=== PATIENT | male | born 1960 | race Caucasian/White ===

== ENCOUNTER 2020-04-20 18:36 | Emergency (ER) | payer BC ==
--- OUTSIDE RECORDS SUMMARY | 2020-04-20 18:38 | XMS REPORT | Clinical Summary ---
:1960 Author Organization [facility] Address [address] [place] [address] Care Team Providers Name Role Phone Pepper Donnelly MD Primary Care Provider Allergies No Known Active Allergies Medications Medication Sig Dispensed Refills Start Date End Date Status levothyroxine Take 50 mcg by 0 10/08/2015 Active (SYNTHROID, LEVOTHROID) mouth once 25 MCG tablet daily. atenolol (TENORMIN) 25 Take 25 mg by 0 Active MG tablet mouth daily. Active Problems Problem Noted Date Prostate cancer 12/01/2015 Cancer Staging: Pathologic stage from : T2c, N0 - Signed by Miguel Ángel Hankins MD on 01/09/2017 Surgical History Surgery Date Site/Laterality Comments WISDOM TOOTH EXTRACTION 07/07/1979 - 07/06/1980 KNEE ARTHROSCOPY W/ MENISCAL 07/07/2008 - Right REPAIR 07/06/2009 SINUS SURGERY 07/07/2014 - 07/06/2015 [place] 12/01/2015 N/A Procedure: ROBOT IC LAP,PROSTATECTOMY,RADICAL,W/ N/A ASS ISTED LAPAROSCOPIC NERVE SPARE,INCL ROBOTIC PROSTAT ECTOMY ; Surgeon: Miguel Ángel Hankins MD; Location: [facility] IN OR; Service: Urology Medical devices from this surgery are in t he Implants section . [place] LAP,PELVIC 12/01/2015 N/A Procedure: BILAT ERAL LYMPHADENECTOMY N/A PELVIC LYMPH NOD E DISSECTION ; Reza rgeon: Miguel Ángle Hankins MD; Location: [facility] IN OR; Service: Urology Medical devices from this surgery are in t he Implants section . PROSTATE SURGERY Medical History Medical History Date Comments Cancer (HCC) Elevated PSA Prostate cancer (HCC) Renal cancer (HCC) Urinary tract infection Seizures (HCC) 2013 had seizure 3 yrs ag o, none since GERD (gastroesophageal reflux disease) Prostate enlargement Hemochromatosis donates blood every 3 months; last donation September 2015 Disease of thyroid gland hypothroid Anesthesia NHAP/NFHAP Hypertension Hard of hearing Family History Medical History Relation Name Comments Hypertension Mother Relation Name Status Comments Father Alive Mother Alive Social History Tobacco Use Types Packs/Day Years Used Date Current Every Day Smoker 1 27 Smokeless Tobacco: Current User Alcohol Use Drinks/Week oz/Week Comments Yes 3-4 Cans of beer 3.0 - 4.0 Sex Assigned at Date Recorded Not on file Last Filed Vital Signs Not on file Plan of Treatment Health Maintenance Due Date Last Done Comments COLONOSCOPY SCREENING 2011 SHINGLES VACCINES (#1) 2011 INFLUENZA VACCINE 02/05/2020 Implants Implanted Type Area Plate Worker Helper Device Shelf Model / Identifier Expiration Serial / Date Lot Clip Ligtng Hem-O-Samia Endoscpc Aplr [facility] Lg - [id number] Surgical WECK CLOSURE [id number] / Implanted: Qty: 5 on 12/01/2015 by Miguel Ángel Hankins MD at [facility] Implants; SYSTEMS / Expanders; Extenders; Surgical Wires Amniofix Amniotic Membrane Allograft - [id number] - [id number] Urological Anterior: [employer] 08/27/2020 APS [id number] / Implanted: Qty: 1 on 12/01/2015 by Miguel Ángel Hankins MD at [facility] Implants or Abdomen, INC [id number] / Sets Middle [id number] Quadrant/No n Specific Results Not on fileafter 04/20/2019 Advance Directives For more information, please contact: [phone] Type Date Recorded Patient [place] Planning Manager Explanati on Advance Directives, Living Will and Medical Power of Plastic Welder Code Status Date Activated Date Inactivated Comments Full Code 12/01/2015 12:05 PM 12/04/2015 5:30 PM Code Status decision reached by: Patient
[2020-04-20] MEDS ORDERED: NA CHLORIDE 0.9% 1,000 ML ONE (19:16)
[2020-04-20] MEDS ORDERED: ONDANSETRON 4 MG/2 ML VIAL ONE (19:17)
[2020-04-20 19:18] LABS: Basophils % 0.8 % (0-1.3); Hematocrit 49.5 % (39.6-49.0); Lymphocytes % 15.9 % (15.3-44.8); MPV 9.2 fL (7.6-11.3)
[2020-04-20 19:28] LABS: Albumin 3.3 g/dL (3.4-5.0); Bilirubin Direct 0.3 mg/dL (0-0.2); Bilirubin Total 1.1 mg/dL (0.2-1.0); Potassium 3.7 mmol/L (3.5-5.1); Protein, Total 8.6 g/dL (6.4-8.2)
[2020-04-20] MEDS ORDERED: KETOROLAC 30 MG/ML INJ ONE (20:10)
[2020-04-20] MEDS ORDERED: CYCLOBENZAPRINE 10 MG TAB ONE (20:10)
--- NOTE | 2020-04-20 20:10 | RAD REPORT ---
EXAM DESCRIPTION: CT - Abdomen Pelvis W Contrast - 04/20/2020 7:43 pm CLINICAL HISTORY: abdominal pain, vomiting COMPARISON: No comparisons TECHNIQUE: Biphasic, helical CT imaging of the abdomen and pelvis was performed following 100 ml non -ionic IV contrast. No oral contrast. All CT scans are performed using dose optimization technique as appropriate and may include automated exposure control or mA/KV adjustment according to patient size. FINDINGS: No suspicious findings in the lung bases. Liver shows diffuse fatty infiltration. There are multiple variably sized homogeneous fluid density t hin wall masses. These all have simple cyst characteristics. Spleen and pancreas show no suspicious f indings. Multiple gallstones are identified. No wall edema or pericholecystic fluid. No biliary tree dilatation. Symmetric renal function is seen with no hydronephrosis or suspicious renal mass. No pyelonephritis o r acute parenchymal process. Urinary bladder is fully contracted limiting detail. No bladder stone. N o adrenal abnormalities. No dilated bowel loops or bowel wall thickening. Retrocecal appendix is normal. No active bowel proce ss identifiable. No free air, free fluid or inflammatory stranding. No hernia, mass or bulky lymphad enopathy. No suspicious bony findings. Aortic atherosclerotic calcifications are present. Mural thrombus is seen along the right side of the infrarenal aorta. No significant luminal narrowing. IMPRESSION: Contrast enhanced CT abdomen and pelvis showing no acute or emergent finding. Cholelithiasis present. Acute cholecystitis not suspected. Correlation is needed with clinical presen tation. Bile ducts are normal size. Patient has diffuse fatty infiltration of the liver with multiple liver cysts present.
--- NOTE | 2020-04-20 20:51 | RAD REPORT ---
EXAM DESCRIPTION: US - Abdomen Exam Limited - 04/20/2020 8:40 pm CLINICAL HISTORY: vomiting, abdominal pain COMPARISON: Abdomen Pelvis W Contrast dated 04/20/2020 FINDINGS: Multiple gallstones are present matching the CT finding. No wall thickening or pericholecy stic fluid seen. No common duct stone or biliary tree dilatation identified. IMPRESSION: Multi stone cholelithiasis without ultrasound findings of acute cholecystitis. No biliary tree abnormality.
--- NOTE | 2020-04-20 21:17 | ER ---
Nurse's Notes [facility] Name: Kyrie Quispe Age: 59 yrs Sex: Male : 1960 Arrival Date: 04/20/2020 Time: 18:37 Bed 15 Private MD: Diagnosis: Cholelithiasis Presentation: 04/20 18:49 Chief complaint: N/V x 2 months. Coronavirus screen: At this time, the client does not hb indicate any symptoms associated with coronavirus-19. Ebola Screen: No symptoms or risks identified at this time. Initial Sepsis Screen: Does the patient meet any 2 criteria? HR > 90 bpm. No. Patient's initial sepsis screen is negative. Does the patient have a suspected source of infection? No. Patient's initial sepsis screen is negative. Risk Assessment: Do you want to hurt yourself or someone else? Patient reports no desire to harm self or others. Onset of symptoms was February 2020. 18:49 Method Of Arrival: Ambulatory hb 18:49 Acuity: RONNIE 3 hb Historical: - Allergies: 18:54 No Known Allergies; hb - Home Meds: 18:54 Xifaxan oral oral [Active]; Levaquin Oral [Active]; Atenolol Oral [Active]; hb levothyroxine oral [Active]; Protonix Oral [Active]; Folic Acid Oral [Active]; kdkmzix-hvlpokybh-fboj oral oral [Active]; - PMHx: 18:54 hemochromatosis; Heart Murmur; Seizures; Prostate CA; hb - PSHx: 18:54 Prostate; Knee - Right; Sinus; hb - Immunization history:: Adult Immunizations up to date. - Social history:: Smoking status: Patient reports the use of cigarette tobacco products, smokes one-half pack cigarettes per day. Screenin:54 Abuse screen: Denies threats or abuse. Denies injuries from another. Nutritional hb screening: No deficits noted. Tuberculosis screening: No symptoms or risk factors identified. Fall Risk None identified. Assessment: 19:12 General: Appears in no apparent distress. Behavior is calm, cooperative, appropriate wh for age. Pain: Denies pain. Neuro: Level of Consciousness is awake, alert, obeys commands, Oriented to person, place, time, situation, Appropriate for age. Cardiovascular: Capillary refill < 3 seconds. Respiratory: Airway is patent Respiratory effort is even, unlabored, Respiratory pattern is regular, symmetrical. GI: Abdomen is flat, non-distended, Abd is soft and non tender Reports nausea, vomiting. : No signs and/or symptoms were reported regarding the genitourinary system. EENT: No signs and/or symptoms were reported regarding the EENT system. Derm: Skin is intact, is healthy with good turgor, Skin is pink, warm \T\ dry. normal. Musculoskeletal: Circulation, motion, and sensation intact. 20:10 Reassessment: Patient appears in no apparent distress at this time. No changes from previously documented assessment. Patient and/or family updated on plan of care and expected duration. Pain level reassessed. Patient is alert, oriented x 3, equal unlabored respirations, skin warm/dry/pink. 21:30 Reassessment: Patient appears in no apparent distress at this time. Patient and/or family updated on plan of care and expected duration. Pain level reassessed. Patient is alert, oriented x 3, equal unlabored respirations, skin warm/dry/pink. Vital Signs: 18:49 BP 121 / 97; Pulse 111; Resp 16; Temp 98.4(O); Pulse Ox 100% on R/A; Weight 79.38 kg; hb Height 6 ft. 3 in. (190.50 cm); Pain 0/10; 19:12 BP 104 / 81; Pulse 105; Resp 18; Pulse Ox 97% on R/A; wh 21:49 BP 121 / 87; Pulse 89; Resp 17; Pulse Ox 98% on R/A; Pain 0/10; tl1 18:49 Body Mass Index 21.87 (79.38 kg, 190.50 cm) ED Course: 18:37 Patient arrived in ED. ds1 18:40 Foster Carpio PA is PHCP. [facility] 18:40 Roney Thomas MD is Attending Physician. [facility] 18:51 Triage completed. hb 18:54 Arm band placed on. hb 18:54 Patient has correct armband on for positive identification. Bed in low position. Call light in reach. Side rails up X 1. 19:00 Initial lab(s) drawn, by me, sent to lab. Inserted saline lock: 20 gauge in right jp3 forearm, using aseptic technique. Blood collected. 19:00 Patient maintains SpO2 saturation greater than 95% on room air. jp3 19:03 Alyson Crawley is Primary Nurse. 19:05 Verbal reassurance given. Pulse ox on. NIBP on. jp3 19:42 CT Abd/Pelvis - IV Contrast Only In Process Unspecified. EDMS 20:42 US Abdomen Limited In Process Unspecified. EDMS 21:16 Davion Shaw MD is Referral Physician. [facility] 21:50 No provider procedures requiring assistance completed. IV discontinued, intact, tl1 bleeding controlled. Administered Medications: 19:09 Drug: NS 0.9% 1000 ml Route: IV; Rate: 1 bolus; Site: right forearm; 21:50 Follow up: IV Status: Completed infusion; IV Intake: 1000ml tl1 19:11 Drug: Zofran (Ondansetron) 4 mg Route: IVP; Site: right forearm; 21:50 Follow up: Response: No adverse reaction; Marked relief of symptoms tl1 Intake: 21:50 IV: 1000ml; Total: 1000ml. tl1 Outcome: 21:16 Discharge ordered by MD. [facility] 21:49 Discharged to home with family. tl1 21:49 Condition: good 21:49 Discharge instructions given to patient, family, Instructed on discharge instructions, follow up and referral plans. medication usage, Demonstrated understanding of instructions, follow-up care, medications, Prescriptions given X 1. 21:50 Patient left the ED. tl1 Signatures: Dispatcher [employer] EDMS Foster Carpio PA PA [facility] Swapna Gentile ds1 Yanet Fenton RN RN tl1 Pily Palma RN RN Alyson Crawley Amari Lerma jp3
--- NOTE | 2020-04-20 21:18 | EDPHYS ---
Physician Documentation [facility] Name: Kyrie Quispe Age: 59 yrs Sex: Male : 1960 Arrival Date: 04/20/2020 Time: 18:37 Bed 15 Private MD: ED Physician Roney Thomas HPI: 04/20 18:42 This 59 yrs old Male presents to ER via Ambulatory with complaints of Unable jmm to Keep Food Down. 18:42 The patient presents to the emergency department with vomiting. Onset: The jmm symptoms/episode began/occurred gradually, 2 month(s) ago. Possible causes: unknown. The symptoms are aggravated by food . Associated signs and symptoms: Pertinent positives: dysuria, Pertinent negatives: diarrhea. This is a 59 year old male with a history of hemochromatosis, seizures, prostate cancer that presents to the ED with complaints of ongoing vomiting for the past 2 months. Patient is currently under the care of Dr. Ling. Advised to go to the ER by her PCP. . Historical: - Allergies: 18:54 No Known Allergies; hb - Home Meds: 18:54 Xifaxan oral oral [Active]; Levaquin Oral [Active]; Atenolol Oral [Active]; hb levothyroxine oral [Active]; Protonix Oral [Active]; Folic Acid Oral [Active]; aqobeoz-hgzkwynww-kvst oral oral [Active]; - PMHx: 18:54 hemochromatosis; Heart Murmur; Seizures; Prostate CA; hb - PSHx: 18:54 Prostate; Knee - Right; Sinus; hb - Immunization history:: Adult Immunizations up to date. - Social history:: Smoking status: Patient reports the use of cigarette tobacco products, smokes one-half pack cigarettes per day. ROS: 18:42 Constitutional: Negative for fever, chills, and weight loss, Cardiovascular: Negative jmm for chest pain, palpitations, and edema, Respiratory: Negative for shortness of breath, cough, wheezing, and pleuritic chest pain. 18:42 Abdomen/GI: Positive for vomiting. 18:42 All other systems are negative. Exam: 18:42 Constitutional: This is a well developed, well nourished patient who is awake, alert, jmm and in no acute distress. Chest/axilla: Normal chest wall appearance and motion. Cardiovascular: Regular rate and rhythm. No edema appreciated Respiratory: Normal respirations, no respiratory distress appreciated 18:42 Abdomen/GI: Inspection: abdomen appears normal, Bowel sounds: normal, Palpation: soft, mild abdominal tenderness, in all quadrants. 18:42 Musculoskeletal/extremity: ROM: intact in all extremities. 18:42 Skin: Appearance: Color: normal in color. 18:42 Neuro: Orientation: is normal, Mentation: is normal, Memory: is normal. 18:42 Psych: Behavior/mood is pleasant, cooperative. Vital Signs: 18:49 BP 121 / 97; Pulse 111; Resp 16; Temp 98.4(O); Pulse Ox 100% on R/A; Weight 79.38 kg; hb Height 6 ft. 3 in. (190.50 cm); Pain 0/10; 19:12 BP 104 / 81; Pulse 105; Resp 18; Pulse Ox 97% on R/A; wh 21:49 BP 121 / 87; Pulse 89; Resp 17; Pulse Ox 98% on R/A; Pain 0/10; tl1 18:49 Body Mass Index 21.87 (79.38 kg, 190.50 cm) hb MDM: 18:42 Patient medically screened. [facility] 21:14 Data reviewed: vital signs, nurses notes. Counseling: I had a detailed discussion with jeremi the patient and/or guardian regarding: the historical points, exam findings, and any diagnostic results supporting the discharge/admit diagnosis, lab results, radiology results, the need for outpatient follow up, to return to the emergency department if symptoms worsen or persist or if there are any questions or concerns that arise at home. ED course: Patient is alert and non toxic in appearance in the ED. I discussed the patient with Dr. Velasquez whom will follow up with the patient tomorrow morning or on Friday. Advised to prescribe the patient augmentin. Patient is otherwise given strict return precautions. Patient understood and agrees with the plan of care. . 04/20 18:50 Order name: Basic Metabolic Panel; Complete Time: 19:29 [facility] 04/20 18:50 Order name: CBC with Diff; Complete Time: 19:59 [facility] 04/20 18:50 Order name: Hepatic Function; Complete Time: 19:29 [facility] 04/20 18:50 Order name: Lipase; Complete Time: 19:29 [facility] 04/20 19:13 Order name: CT Abd/Pelvis - IV Contrast Only; Complete Time: 20:25 [facility] 04/20 19:46 Order name: TSH; Complete Time: 20:25 [facility] 04/20 18:50 Order name: IV Saline Lock; Complete Time: 19:02 [facility] 04/20 18:50 Order name: Labs collected and sent; Complete Time: 19:02 [facility] 04/20 19:30 Order name: US Abdomen Limited; Complete Time: 20:55 [facility] Administered Medications: 19:09 Drug: NS 0.9% 1000 ml Route: IV; Rate: 1 bolus; Site: right forearm; 21:50 Follow up: IV Status: Completed infusion; IV Intake: 1000ml tl1 19:11 Drug: Zofran (Ondansetron) 4 mg Route: IVP; Site: right forearm; 21:50 Follow up: Response: No adverse reaction; Marked relief of symptoms tl1 Disposition: 04/21 07:28 Co-signature as Attending Physician, Roney Thomas MD I agree with the assessment and kdr plan of care. Disposition: 04/20/20 21:16 Discharged to Home. Impression: Cholelithiasis. - Condition is Stable. - Discharge Instructions: Cholelithiasis. - Prescriptions for Augmentin 875- 125 mg Oral Tablet - take 1 tablet by ORAL route every 12 hours for 10 days; 20 tablet. - Medication Reconciliation Form, Thank You Letter, Antibiotic Education, Prescription Opioid Use form. - Follow up: Davion Shaw MD; When: Tomorrow; Reason: Recheck today's complaints, Continuance of care, Re-evaluation by your physician. Signatures: Dispatcher [employer] EDRoney Beard MD MD kdr Mickail, Joel, PA PA [facility] Yanet Fenton RN RN tl1 Pily Palma RN RN Alyson Crawley Corrections: (The following items were deleted from the chart) 04/20 21:50 21:16 04/20/2020 21:16 Discharged to Home. Impression: Cholelithiasis. Condition is tl1 Stable. Forms are Medication Reconciliation Form, Thank You Letter, Antibiotic Education, Prescription Opioid Use. Follow up: Davion Shaw; When: Tomorrow; Reason: Recheck today's complaints, Continuance of care, Re-evaluation by your physician. jeremi
[2020-04-20 22:37] VITALS: TEMP 98.4
[2020-04-20 22:40] VITALS: BP 121/87; O2SAT 98
== END 2020-04-20 21:50 | disposition home or self-care (01) ==
LOC: ER 18:36
DX: K80.20 Calculus of gallbladder without cholecystitis without obstruction (principal); F17.210 Nicotine dependence, cigarettes, uncomplicated; Z85.46 Personal history of malignant neoplasm of prostate
CPT/HCPCS: 96361; 85025; 80048; 36415; 80076; 84443; 83690; 74177; 76705; 96374; 99284; Q9967; J7030; J2405

== ENCOUNTER 2020-04-26 07:07 | Day surgery (SDC) | payer BC ==
[2020-04-26] MEDS ORDERED: Ringers Lactate 1,000 ML IV ONE (07:38)
--- OUTSIDE RECORDS SUMMARY | 2020-04-26 07:51 | XMS REPORT | Clinical Summary ---
:1960 Author Organization [facility] Address [address] [place] [address] Care Team Providers Name Role Phone Pepper [...] REPAIR 07/06/2009 SINUS SURGERY 07/07/2014 - 07/06/2015 [place] 12/01/2015 N/A Procedure: ROBOT IC LAP,PROSTATECTOMY,RADICAL,W/ N/A ASS ISTED LAPAROSCOPIC NERVE SPARE,INCL ROBOTIC PROSTAT ECTOMY ; Surgeon: Miguel Ángel Hankins MD; Location: [facility] IN OR; Service: Urology Medical devices from this surgery are in t he Implants section . [place] LAP,PELVIC 12/01/2015 N/A Procedure: BILAT ERAL LYMPHADENECTOMY N/A PELVIC LYMPH NOD E DISSECTION ; Reza rgeon: Miguel Ángel Hankins MD; Location: [facility] IN OR; Service: Urology Medical devices from [...] INFLUENZA VACCINE 02/05/2020 Implants Implanted Type Area Boat Detailer Device Shelf Model / Identifier Expiration Serial / Date Lot Clip Ligtng Hem-O-Samia Endoscpc Aplr [facility] Lg - [id number] Surgical WECK CLOSURE [id number] / Implanted: Qty: 5 on 12/01/2015 by Miguel Ángel Hankins MD at [facility] Implants; SYSTEMS / Expanders; Extenders; Surgical Wires Amniofix Amniotic Membrane Allograft - [id number] Urological Anterior: [employer] 08/27/2020 APS [id number] / Implanted: Qty: 1 on 12/01/2015 by Miguel Ángel Hankins MD at [facility] Implants or Abdomen, INC [id number] / Sets Middle [id number] Quadrant/No n Specific Results Not on fileafter 04/26/2019 Advance Directives For more information, please contact: [phone] Type Date Recorded 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
[2020-04-26] MEDS ORDERED: EPINEPHRINE/PF 1 MG/ML AMP ONE (08:36)
--- NOTE | 2020-04-26 08:52 | ENDO RPT ---
[address], [address] EGD PROCEDURE REPORT EXAM DATE: 04/26/2020 PATIENT NAME: Kyrie Quispe MR#: [id number] BIRTHDATE: 1960 ATTENDING: Davion Shaw DR STATUS: outpatient ELECTRICAL INTERN: Michael Ruano and Milly Colindres RN INDICATIONS: The patient is a 59 yr old Male here for an EGD due to early satiety, nausea and vomiting, and weight loss PROCEDURE PERFORMED: EGD with biopsy for H. pylori MEDICATIONS: Per Anesthesia. TOPICAL ANESTHETIC: none CONSENT: The patient understands the risks and benefits of the procedure and understands that these risks include, but are not limited to: sedation, allergic reaction, infection, perforation and/or bleeding. Alternative means of evaluation and treatment include, among others: physical exam, x-rays, and/or surgical intervention. The patient elects to proceed with this endoscopic procedure. DESCRIPTION OF PROCEDURE: During intra-op preparation period all mechanical medical equipment was checked for proper function. Hand hygiene and appropriate measures for infection prevention was taken. Procedure, possible complications, and alternatives including but not limited to the possibility of bleeding, perforation, tear, infection, sepsis, need for surgery, need for blood transfusion, and anesthesia related complications were explained to the patient. After the risks, benefits and alternatives of the procedure were thoroughly explained, Informed consent was verified, confirmed and timeout was successfully executed by the treatment team. The patient was placed in the left lateral position. The patient was anesthetized with topical anesthesia. Through the anesthetized oropharyngeal area, the scope was passed without any difficulty. The Pentax [id number] ([id number]) endoscope was introduced through the mouth and advanced to the second portion of the duodenum. Retroflexed views revealed a small hiatal hernia. The gastroscope was then slowly withdrawn and removed. Multiple erosions were found in the body and the antrum of the stomach. A biopsy for H. pylori was taken. Mild gastritis was found in the total stomach. A biopsy for H. pylori was taken. A small hiatal hernia was found Minimal peristalsis ADVERSE EVENTS: There were no complications. IMPRESSIONS: 1. Multiple erosions were found in the body and the antrum of the stomach 2. Mild gastritis was found in the total stomach 3. A small hiatal hernia was found 4. Minimal peristalsis RECOMMENDATIONS: 1. anti-reflux regimen 2. acid suppression therapy 3. await biopsy results 4. follow-up: office 2 week(s) 5. avoid NSAIDS 6. gastric emptying study 7. follow-up of helicobacter pylori status, treat if indicated REPEAT EXAM: Davion Shaw DR eSigned: Davion Shaw DR 04/26/2020 8:51 AM cc: CPT CODES: ICD9 CODES: PATIENT NAME: Kyrie Quispe MR#: [id number]
[2020-04-26] MEDS ORDERED: MIDAZOLAM HCL 2 MG/2 ML INJ ONE (09:13)
[2020-04-26] MEDS ORDERED: propofoL 200 MG/20 ML VIAL IV ONE (09:13)
[2020-04-26] MEDS ORDERED: LIDOCAINE 1% MPF 30 ML VIAL ONE (09:13)
[2020-04-26 10:10] VITALS: TEMP 97.8
[2020-04-26 10:11] VITALS: BP 119/82; O2SAT 96
== END 2020-04-26 09:30 | disposition home or self-care (01) ==
LOC: OR 07:07
PROVIDERS: ATTEND Surgery
PROC: 0DB78ZX Excision of Stomach, Pylorus, Via Natural or Artificial Opening Endoscopic, Diagnostic (ICD-10-PCS; 2020-04-26)
PROC: 0DB68ZX Excision of Stomach, Via Natural or Artificial Opening Endoscopic, Diagnostic (ICD-10-PCS; 2020-04-26)
PROC: 0DB58ZX Excision of Esophagus, Via Natural or Artificial Opening Endoscopic, Diagnostic (ICD-10-PCS; 2020-04-26)
PROC: 0DB98ZX Excision of Duodenum, Via Natural or Artificial Opening Endoscopic, Diagnostic (ICD-10-PCS; principal; 2020-04-26 08:30)
DX: R68.81 Early satiety (principal); R11.2 Nausea with vomiting, unspecified; R63.4 Abnormal weight loss; K29.50 Unspecified chronic gastritis without bleeding; K44.9 Diaphragmatic hernia without obstruction or gangrene; K25.9 Gastric ulcer, unspecified as acute or chronic, without hemorrhage or perforation; Z20.828 Contact with and (suspected) exposure to other viral communicable diseases
CPT/HCPCS: 88312; 88305; 43239; U0002; J2704; J2250; J7120; J0171

== ENCOUNTER 2021-04-16 12:21 | Emergency (ER) | payer BC ==
[2021-04-16 13:41] LABS: Albumin 2.5 g/dL (3.4-5.0); Bilirubin Direct 0.4 mg/dL (0-0.2); Bilirubin Total 1.2 mg/dL (0.2-1.0); Potassium 3.2 mmol/L (3.5-5.1); Protein, Total 8.4 g/dL (6.4-8.2)
[2021-04-16] MEDS ORDERED: MORPHINE 4 MG/ML SYR ONE (13:44)
[2021-04-16] MEDS ORDERED: ONDANSETRON 4 MG/2 ML VIAL ONE (13:44)
[2021-04-16] MEDS ORDERED: NA CHLORIDE 0.9% 1,000 ML ONE ×2 (13:44→17:45)
[2021-04-16 13:54] LABS: Absolute Lymphocytes (CBC) 0.6 K/uL (0.7-4.9); Basophils % 0.6 % (0-1.3); Hematocrit 43.2 % (39.6-49.0); Lymphocytes % 6.1 % (15.3-44.8); MPV 9.3 fL (7.6-11.3); RBC Red Blood Cell Count 4.87 M/uL (4.33-5.43)
--- NOTE | 2021-04-16 14:51 | RAD REPORT ---
EXAM DESCRIPTION: CT - Abdomen Pelvis W Contrast - 04/16/2021 2:35 pm CLINICAL HISTORY: Abdominal pain COMPARISON: 2019 TECHNIQUE: Computed axial tomography of the abdomen pelvis was obtained. 100 cc Isovue-300 was admin istered intravenously. Oral contrast was not requested which limits evaluation of bowel. All CT scans are performed using dose optimization technique as appropriate and may include automated exposure control or mA/KV adjustment according to patient size. FINDINGS: Left lower lobe consolidation Fatty liver with multiple cysts. Cholelithiasis. Gallbladder wall does not appear thickened. Spleen, pancreas, adrenal and kidneys appear unremarkable. There is no evidence of diverticulitis. Normal appendix IMPRESSION: Left lower lobe consolidation likely pneumonia. This should be followed until it is ignacio r to exclude a post obstructive process/underlying mass Cholelithiasis without evidence of cholecystitis
[2021-04-16 15:28] LABS: Urine Blood 2+ (Negative); Urine Glucose Negative (Negative); Urine Protein 3+ (Negative)
--- NOTE | 2021-04-16 15:52 | RAD REPORT ---
EXAM DESCRIPTION: Re Single View04/16/2021 3:16 pm CLINICAL HISTORY: Cough COMPARISON: 2007 FINDINGS: Left lower lobe consolidation. Right lung appears clear of acute infiltrate. The heart is normal size IMPRESSION: Left lower lobe consolidation likely pneumonia. This should be followed until it is ignacio r to help exclude a post obstructive process/underlying mass
[2021-04-16 16:11] LABS: Urine Bacteria <20 /HPF (NONE SEEN); Urine Mucus 2+ /HPF (NONE SEEN); Urine RBC <5 /HPF (NONE SEEN)
[2021-04-16] MEDS ORDERED: CEFTRIAXONE 1000 MG/VIAL ONE ×2 (17:01→17:11)
[2021-04-16] MEDS ORDERED: AZITHROMYCIN 500 MG INJ IVPB ONE (17:02)
[2021-04-16] MEDS ORDERED: NA CHLORIDE 0.9% 250 ML ONE (17:02)
[2021-04-16] MEDS ORDERED: NA CHLORIDE 0.9% 0 ML ONE (17:11)
[2021-04-16] MEDS ORDERED: atenoloL 50 MG TAB ONE ×2 (17:45→17:49)
--- NOTE | 2021-04-16 18:09 | ER ---
Nurse's Notes [facility] Name: Kyrie Quispe Age: 60 yrs Sex: Male : 1960 Arrival Date: 04/16/2021 Time: 12:26 Bed 20 Private MD: Diagnosis: Pneumonia, unspecified organism Presentation: 04/16 12:37 Chief complaint: Patient states: "I hurt my back a month ago from picking my mother up aa5 from the floor and today I woke up with my stomach hurting". Pt c/o left sided abd pain. 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 Coronavirus screen: At this time, the client does not indicate any symptoms associated with coronavirus-19. Ebola Screen: Patient negative for fever greater than or equal to 101.5 degrees Fahrenheit, and additional compatible Ebola Virus Disease symptoms. Initial Sepsis Screen: Does the patient meet any 2 criteria? HR > 90 bpm. Does the patient have a suspected source of infection? No. Patient's initial sepsis screen is negative. Risk Assessment: Do you want to hurt yourself or someone else? Patient reports no desire to harm self or others. Onset of symptoms was April 2021. 12:37 Method Of Arrival: Ambulatory aa5 12:37 Acuity: RONNIE 3 aa5 Historical: - Allergies: 12:39 No Known Allergies; aa5 - PMHx: 12:39 Heart Murmur; hemochromatosis; PROSTATE CA; Seizures; aa5 - Immunization history:: Client reports having NOT received the Covid vaccine. - Social history:: Smoking status: Patient reports the use of cigarette tobacco products, smokes one-half pack cigarettes per day. Screenin:48 Abuse screen: Denies threats or abuse. Denies injuries from another. Nutritional tc5 screening: No deficits noted. Tuberculosis screening: No symptoms or risk factors identified. Fall Risk None identified. Assessment: 14:46 Reassessment: No changes from previously documented assessment. General: Appears in no tc5 apparent distress. Behavior is calm, cooperative, appropriate for age, back pain x 1 mo, abd pain today rates the pain 10/10.. Pain: Complains of pain in back and abdomen. Neuro: No deficits noted. Vital Signs: 12:37 BP 149 / 101; Pulse 128; Resp 18 S; Temp 98.0(TE); Pulse Ox 93% on R/A; Height 6 ft. 3 aa5 in. (190.50 cm) (R); 12:42 Weight 81.65 kg (M); iw 15:36 BP 109 / 79; Pulse 108; Resp 16; Pulse Ox 98% ; Pain 6/10; tc5 17:50 BP 121 / 89; Pulse 100; Resp 16; Pulse Ox 99% ; Pain 6/10; tc5 18:08 BP 111 / 74; Pulse 94; Resp 16; Pulse Ox 100% ; tc5 12:42 Body Mass Index 22.50 (81.65 kg, 190.50 cm) iw ED Course: 12:26 Patient arrived in ED. as 12:37 Arm band placed on. aa5 12:39 Triage completed. aa5 12:57 Trevon Palomo NP is PHCP. pm1 12:57 Roney Thomas MD is Attending Physician. pm1 13:21 Violeta English RN is Primary Nurse. es2 14:35 CT Abd/Pelvis - IV Contrast Only In Process Unspecified. EDMS 15:16 Chest Single View XRAY In Process Unspecified. EDMS 17:49 Urine Culture Sent. tc5 18:16 IV discontinued, intact, bleeding controlled, No redness/swelling at site. Pressure tc5 dressing applied. Administered Medications: 13:21 Drug: NS 0.9% 1000 ml Route: IV; Rate: 1000 ml; Site: left antecubital; es2 13:21 Drug: morphine 4 mg Route: IVP; Site: left antecubital; es2 13:21 Drug: Zofran (Ondansetron) 4 mg Route: IVP; Site: left antecubital; es2 17:19 Drug: Rocephin (cefTRIAXone) 1 grams Route: IV; Rate: calculated rate; Site: left es2 antecubital; 17:19 Follow up: Response: No adverse reaction; IV Status: Completed infusion es2 17:26 Follow up: Response: No adverse reaction tc5 17:49 Follow up: Response: No adverse reaction tc5 17:19 Drug: AZITHromycin 500 mg Route: IVPB; Infused Over: 1 hrs; Site: left antecubital; es2 17:19 Follow up: Response: No adverse reaction es2 17:49 Follow up: IV Status: Completed infusion; IV Intake: 250ml tc5 17:26 Drug: NS 0.9% 1000 ml Route: IV; Rate: 1000 ml; Site: left antecubital; tc5 18:09 Follow up: IV Status: Completed infusion; IV Intake: 1000ml tc5 17:26 Drug: Atenolol 50 mg Route: PO; tc5 17:49 Follow up: Response: No adverse reaction tc5 Intake: 17:49 IV: 250ml; Total: 250ml. tc5 18:09 IV: 1000ml; Total: 1250ml. tc5 Outcome: 18:08 Discharge ordered by . pm1 18:22 Discharged to home ambulatory, with family. tc5 18:22 Condition: stable 18:22 Discharge instructions given to patient. 18:23 Patient left the ED. tc5 Signatures: Dispatcher [employer] Dasha Mendosa Irene, RN RN iw Gertrude Cherry RN RN aa5 Trevon Palomo, MATT WILDLIFE BIOLOGIST pm1 Violeta English RN RN es2 Liza Guerra RN RN tc5
--- NOTE | 2021-04-16 18:10 | EDPHYS ---
Physician Documentation [facility] Name: Kyrie Quispe Age: 60 yrs Sex: Male : 1960 Arrival Date: 04/16/2021 Time: 12:26 Bed 20 Private MD: ED Physician Roney Thomas HPI: 04/16 13:29 This 60 yrs old Male presents to ER via Ambulatory with complaints of Back pm1 Pain, Abdominal Pain. 13:29 The patient presents with pain that is acute. The symptoms are located in the left mid pm1 back. Onset: The symptoms/episode began/occurred today. The pain does not radiate. Associated signs and symptoms: Pertinent positives: abdominal pain, Cough, Pertinent negatives: Chest pain, shortness of breath, fever. The problem was sustained from unknown cause, Possibly from picking up his mother from the floor 1 month ago per patient. Modifying factors: The patient symptoms are alleviated by nothing, the patient symptoms are aggravated by movement. Severity of symptoms: in the emergency department the symptoms are unchanged. The patient has not experienced similar symptoms in the past. The patient has not recently seen a physician. Historical: - Allergies: 12:39 No Known Allergies; aa5 - PMHx: 12:39 Heart Murmur; hemochromatosis; PROSTATE CA; Seizures; aa5 - Immunization history:: Client reports having NOT received the Covid vaccine. - Social history:: Smoking status: Patient reports the use of cigarette tobacco products, smokes one-half pack cigarettes per day. ROS: 13:29 Constitutional: Negative for fever, chills, and weight loss, Cardiovascular: Negative pm1 for chest pain, palpitations, and edema. 13:29 : Negative for injury, bleeding, discharge, and swelling, MS/Extremity: Negative for injury and deformity, Skin: Negative for injury, rash, and discoloration, Neuro: Negative for headache, weakness, numbness, tingling, and seizure. 13:29 Respiratory: Positive for cough, Negative for shortness of breath, sputum production. 13:29 Abdomen/GI: Positive for abdominal pain, of the left upper quadrant, Negative for nausea, vomiting, and diarrhea. 13:29 Back: Positive for of the left mid back pain. 13:29 All other systems are negative. Exam: 13:29 Constitutional: This is a well developed, well nourished patient who is awake, alert, pm1 and in no acute distress. Head/Face: Normocephalic, atraumatic. 13:29 Chest/axilla: Normal chest wall appearance and motion. Nontender with no deformity. No lesions are appreciated. 13:29 Skin: Warm, dry with normal turgor. Normal color with no rashes, no lesions, and no evidence of cellulitis. MS/ Extremity: Pulses equal, no cyanosis. Neurovascular intact. Full, normal range of motion. 13:29 Eyes: Exam is negative for acute changes, Extraocular movements: intact throughout. 13:29 ENT: Exam is negative for acute changes, Mouth: no acute changes, Lips: normal, moist, Oral mucosa: normal, pink and intact, moist. 13:29 Cardiovascular: Exam negative for acute changes, Rate: tachycardic, Rhythm: regular, Pulses: no pulse deficits are appreciated, Heart sounds: normal, Edema: is not appreciated. 13:29 Respiratory: Exam negative for acute changes, respiratory distress, shortness of breath, Breath sounds: are clear throughout. 13:29 Back: Exam negative for acute changes, pain, is absent. 13:29 Neuro: Exam negative for acute changes, Orientation: is normal, Mentation: is normal, Motor: is normal, moves all fours. Vital Signs: 12:37 BP 149 / 101; Pulse 128; Resp 18 S; Temp 98.0(TE); Pulse Ox 93% on R/A; Height 6 ft. 3 aa5 in. (190.50 cm) (R); 12:42 Weight 81.65 kg (M); iw 15:36 BP 109 / 79; Pulse 108; Resp 16; Pulse Ox 98% ; Pain 6/10; tc5 17:50 BP 121 / 89; Pulse 100; Resp 16; Pulse Ox 99% ; Pain 6/10; tc5 18:08 BP 111 / 74; Pulse 94; Resp 16; Pulse Ox 100% ; tc5 12:42 Body Mass Index 22.50 (81.65 kg, 190.50 cm) iw MDM: 13:04 Patient medically screened. pm1 17:30 Data reviewed: vital signs. Data interpreted: Pulse oximetry: on room air is 98 %. pm1 Interpretation: normal. 18:08 Counseling: I had a detailed discussion with the patient and/or guardian regarding: the pm1 historical points, exam findings, and any diagnostic results supporting the discharge/admit diagnosis, lab results, radiology results, the need for outpatient follow up, a family practitioner, to return to the emergency department if symptoms worsen or persist or if there are any questions or concerns that arise at home. 18:08 Differential diagnosis: Abdominal pain, pneumonia, COVID-19, influenza, pancreatitis, pm1 UTI, kidney stones. 18:12 ED course: Patient tachycardia resolved with atenolol 50 mg p.o. and IV fluids. Patient pm1 did not take his atenolol this morning and reports known history of tachycardia. Patient without any oxygen demands and not tachypneic. Patient actually does not report any shortness of breath. Therefore will discharge the patient home with antibiotics and pain medication. 18:12 ED course: LOPPER aware reviewed. pm1 04/16 13:02 Order name: Basic Metabolic Panel; Complete Time: 13:56 pm1 04/16 13:02 Order name: CBC with Diff; Complete Time: 14:03 pm1 04/16 13:02 Order name: Hepatic Function; Complete Time: 13:56 pm1 04/16 13:02 Order name: Lipase; Complete Time: 13:56 pm1 04/16 15:17 Order name: Flu; Complete Time: 16:35 pm1 04/16 14:04 Order name: Chest Single View XRAY; Complete Time: 16:09 pm04/16 14:04 Order name: CT Abd/Pelvis - IV Contrast Only; Complete Time: 15:10 pm1 04/16 15:28 Order name: Urine Dipstick-Ancillary; Complete Time: 16:09 EDKS 04/16 15:32 Order name: Urine Microscopic Only; Complete Time: 16:35 iw 04/16 16:07 Order name: SARS-COV-2 RT PCR; Complete Time: 17:10 EDKS 04/16 16:10 Order name: Urine Culture pm1 04/16 16:10 Order name: Urine Culture EDKS 04/16 13:02 Order name: IV Saline Lock; Complete Time: 13:21 pm1 04/16 13:02 Order name: Labs collected and sent; Complete Time: 13:21 pm1 04/16 14:04 Order name: Urine Dipstick-Ancillary (obtain specimen); Complete Time: 15:47 pm1 Administered Medications: 13:21 Drug: NS 0.9% 1000 ml Route: IV; Rate: 1000 ml; Site: left antecubital; es2 13:21 Drug: morphine 4 mg Route: IVP; Site: left antecubital; es2 13:21 Drug: Zofran (Ondansetron) 4 mg Route: IVP; Site: left antecubital; es2 17:19 Drug: Rocephin (cefTRIAXone) 1 grams Route: IV; Rate: calculated rate; Site: left es2 antecubital; 17:19 Follow up: Response: No adverse reaction; IV Status: Completed infusion es2 17:26 Follow up: Response: No adverse reaction tc5 17:49 Follow up: Response: No adverse reaction tc5 17:19 Drug: AZITHromycin 500 mg Route: IVPB; Infused Over: 1 hrs; Site: left antecubital; es2 17:19 Follow up: Response: No adverse reaction es2 17:49 Follow up: IV Status: Completed infusion; IV Intake: 250ml tc5 17:26 Drug: NS 0.9% 1000 ml Route: IV; Rate: 1000 ml; Site: left antecubital; tc5 18:09 Follow up: IV Status: Completed infusion; IV Intake: 1000ml tc5 17:26 Drug: Atenolol 50 mg Route: PO; tc5 17:49 Follow up: Response: No adverse reaction tc5 Disposition: 04/17 08:55 Co-signature as Attending Physician, Roney Thomas MD I agree with the assessment and kdr plan of care. Disposition Summary: 04/16/21 18:08 Discharge Ordered Location: Home pm1 Problem: new pm1 Symptoms: have improved pm1 Condition: Stable pm1 Diagnosis - Pneumonia, unspecified organism pm1 Followup: pm1 - With: Emergency Department - When: As needed - Reason: Worsening of condition Followup: pm1 - With: Private Physician - When: 2 - 3 days - Reason: Recheck today's complaints, Continuance of care, Re-evaluation by your physician Discharge Instructions: - Discharge Summary Sheet pm1 - Community-Acquired Pneumonia, Adult pm1 Forms: - Medication Reconciliation Form pm1 - Thank You Letter pm1 - Antibiotic Education pm1 - Prescription Opioid Use pm1 Prescriptions: - acetaminophen-codeine 300-15 mg Oral tablet - take 2 tablet by ORAL route every 6 hours As needed as needed; 20 tablet; pm1 Refills: 0, Product Selection Permitted - Zithromax Z-Eusebio 250 mg Oral Tablet - take 1 tablet by ORAL route as directed for 5 days Day 1 - take two (2) tablets pm1 one time. Day 2, 3, 4 , 5 take one (1) tablet once daily.; 6 tablet; Refills: 0, Product Selection Permitted Signatures: Dispatcher [employer] EDMS Roney Thomas MD MD kdr Calderon, Audri RN RN aa5 Trevon Palomo NP RUBBER CALENDER HELPER pm1 Violeta English RN RN es2 Liza Guerra RN RN tc5 Corrections: (The following items were deleted from the chart) 04/16 16:07 15:18 CORONAVIRUS+ ordered. EDKS EDKS
[2021-04-16 18:29] VITALS: TEMP 98
[2021-04-16 18:32] VITALS: BP 111/74; O2SAT 100
== END 2021-04-16 18:23 | disposition home or self-care (01) ==
LOC: ER 12:21
DX: J18.9 Pneumonia, unspecified organism (principal); F17.210 Nicotine dependence, cigarettes, uncomplicated; Z85.46 Personal history of malignant neoplasm of prostate; Z20.822 Contact with and (suspected) exposure to COVID-19
CPT/HCPCS: 96365; 87088; 85025; 87086; 80048; 36415; 80076; 87077; 87186; 83690; 87804 ×2; 74177; 71045; 96375; 99284; U0003; Q9967; J0456; J7050; J7030 ×2; J2405; 81003; 81015

== ENCOUNTER 2021-10-06 12:34 | Emergency (ER) | payer BC ==
--- OUTSIDE RECORDS SUMMARY | 2021-10-06 12:36 | XMS REPORT | Continuity of Care Document ---
:1960 Author Organization [facility] t Address [address] [place] [address] [address] [place] [address] Care Team Providers Name Role Phone JENKINS Attending Clinician Unavailable JAMIE Attending Clinician Unavailable KASHIF BAIRES Attending Clinician Unavailable Radiology Attending Clinician Unavailable RADIOLOGY Attending Clinician Unavailable Manuel_P Attending Clinician Unavailable JAMIE Admitting Clinician Unavailable ONEIL RAMIREZ Admitting Clinician Unavailable Raju_P Admitting Clinician Unavailable Payers Payer Name Policy Type Policy Number Effective Date Expiration Date S adam BCBSTX PPO [id number] 2018 00:00:00 [place] [id number] 2013 00:00:00 [place] Problems This patient has no known problems. Allergies, Adverse Reactions, Alerts Allergy Allergy Status Severity Reaction(s) Onset Inactive Treating Comm ents Source Name Type Date Date Clinician NO KNOWN Drug Active [facility] ALLERGIE Class ity of [facility] Social History Social Habit Start Date Stop Date Quantity Comments [facility] to [facility]2 Not sure Un [facility] (event) [facility] Smoking Status Start Date Stop Date Source Unknown if ever smoked [facility] Medications This patient has no known medications. Procedures Procedure Date / Time Performing Clinician Source Performed [facility] PATIENT FINANCIAL 2020-07-19 22:11:48 [facility] NO SHOW OR MISSED 2020-07-19 22:11:32 Doctor Unassigned, Univers [facility] APPOINTMENT POLICY [facility] ACKNOWLEDGEMENT NOTICE OF PRIVACY 2020-07-19 22:11:13 Doctor Unassigned, Jannie [facility] PRACTICES [facility] CONSENT/REFUSAL FOR 2020-07-19 22:10:57 Doctor Unassigned, En[facility] DIAGNOSIS AND TREATMENT [facility] ASSIGNMENT OF BENEFITS 2020-07-19 22:10:43 [facility] Encounters Start End Encounter Admission Attending Care Care Encounter Source Date/Time Date/Time Type Type Clinicians Facility Department ID 2021-08-03 Outpatient GREGORY, [facility] [id number] [place] 15:22:16 [facility] 2021-09-06 2021-09-12 Outpatient E JAMIE BL MED [id number] [facility] 21:22:00 16:30:00 JESENIA 2021-08-26 2021-09-05 [facility]patient [id number] 07:13:00 13:27:00 EDNA 2020-07-19 2020-07-19 Hospital Radiology [facility] [id number] [facility] 16:16:17 23:59:00 [id number] [id number] [place] [address] Branch 2020-07-19 2020-07-19 Outpatient R RADIOLOGY [facility] [id number] Univers 00:00:00 00:00:00 ity [facility] 2020-06-06 2020-06-06 Outpatient Raju_P [facility] [id number] [place] 11:48:00 11:48:00 [facility] Results This patient has no known results.
[2021-10-06 13:06] LABS: Absolute Lymphocytes (CBC) 1.4 K/uL (0.7-4.9); Hematocrit 37.9 % (39.6-49.0); Lymphocytes % 25.9 % (15.3-44.8); MPV 8.7 fL (7.6-11.3); RBC Red Blood Cell Count 3.84 M/uL (4.33-5.43)
[2021-10-06 13:12] LABS: Protime INR 1.05
--- NOTE | 2021-10-06 13:16 | RAD REPORT ---
EXAM DESCRIPTION: CT - Head Brain Wo Cont - 10/06/2021 1:06 pm CLINICAL HISTORY: left worship injury COMPARISON: SINUS W O CONTRAST dated 12/22/2014 TECHNIQUE: Axial 5 mm thick images of the head were obtained without IV contrast. All CT scans are performed using dose optimization technique as appropriate and may include automated exposure control or mA/KV adjustment according to patient size. FINDINGS: No intracranial hemorrhage, mass, edema or shift of mid-line structures. No cortical level infarction seen. No cortical edema or sulcal effacement. Mild atrophy changes are present. Ventricle s are in proportion to volume loss. Focal area of diminished attenuation is present in the left parie thomas lobe believed to be an old small infarction. No abnormal extra-axial fluid collections. Arterial and physiologic calcifications are present. Mastoid air cells and visualized portions of the paranasal sinuses are clear. No acute bony findings. No measurable scalp hematoma. IMPRESSION: Negative non-contrast CT head examination for acute finding.
[2021-10-06 13:20] LABS: Potassium 3.8 mmol/L (3.5-5.1)
--- NOTE | 2021-10-06 13:23 | EDPHYS ---
Physician Documentation [facility] Name: Kyrie Quispe Age: 61 yrs Sex: Male : 1960 Arrival Date: 10/06/2021 Time: 12:37 Bed 4 Private MD: Torito Perez ED Physician Cuong Rivera HPI: 10/06 12:58 This 61 yrs old Male presents to ER via Wheelchair with complaints of head injury. rn 12:58 The patient or guardian reports injury, a laceration, pain. The complaints affect the rn left oriental orthodox. Onset: The symptoms/episode began/occurred 2 hour(s) ago. Associated signs and symptoms: Loss of consciousness: This patient did not experience any loss of consciousness. Pertinent positives: headache, Pertinent negatives: the patient has not experienced a loss of conciousness, neck pain, seizure, vomiting. Severity of symptoms: At their worst the symptoms were moderate, in the emergency department the symptoms have improved. The patient has not experienced similar symptoms in the past. The patient has not recently seen a physician. Pt reports in efrain, fco, states right leg gave out, hit left oriental orthodox on ground, was "a puddle of blood" on ground, used tissue adhesive to glue wound to stop bleeding, has stopped bleeding. They noticed left pupil slightly larger than right, but not sure if new or old. States multiple doctor visits recently for seizures and stroke. Takes aspirin but nothing stronger for anticoagulation.. Historical: - PMHx: 12:50 Heart Murmur; hemochromatosis; PROSTATE CA; Seizures; ld1 - PSHx: 12:50 None; ld1 - Immunization history: Last tetanus immunization: unknown. - Social history:: Smoking status: Patient denies any tobacco usage or history of. Patient/guardian denies using alcohol. - Family history:: not pertinent. - Hospitalizations: : No recent hospitalization is reported. ROS: 13:00 Constitutional: Negative for fever, chills, and weight loss, Eyes: Negative for injury, rn pain, redness, and discharge, ENT: Negative for injury, pain, and discharge, Neck: Negative for injury, pain, and swelling, Cardiovascular: Negative for chest pain, palpitations, and edema, Respiratory: Negative for shortness of breath, cough, wheezing, and pleuritic chest pain, Abdomen/GI: Negative for abdominal pain, nausea, vomiting, diarrhea, and constipation, Back: Negative for injury and pain, MS/Extremity: Negative for injury and deformity, Skin: + laceration to left oriental orthodox Neuro: Negative for weakness, numbness, tingling, and seizure. Exam: 13:00 Constitutional: Thin male, no acute distress Head/Face: Normocephalic, + irregular rn laceration left oriental orthodox that has already been glued, no active bleeding, no gaping of wound. Eyes: Pupils unequal in size, left>right, both reactive and consensual response present. Neck: Trachea midline, no masses palpated. Supple, full range of motion without nuchal rigidity, or vertebral point tenderness. No Meningismus. Cardiovascular: Regular rate and rhythm. No pulse deficits. Respiratory: No increased work of breathing, no retractions or nasal flaring. Abdomen/GI: soft, non-tender Skin: Warm, dry MS/ Extremity: Pulses equal, no cyanosis. Neurovascular intact. Full, normal range of motion. Equal circumference. Neuro: Awake and alert, GCS 15, oriented to person, place, time, and situation. Cranial nerves II-XII grossly intact. Motor strength 5/5 in all extremities. Sensory grossly intact. Vital Signs: 12:45 BP 98 / 72; Pulse 89; Resp 18; Temp 98.3(TE); Pulse Ox 100% ; Weight 71.67 kg; Height 6 ld1 ft. 1 in. (185.42 cm); Pain 0/10; 13:08 BP 108 / 75; Pulse 84; Resp 17 S; Pulse Ox 100% on R/A; Pain 0/10; jg9 12:45 Body Mass Index 20.85 (71.67 kg, 185.42 cm) ld1 Ivan Coma Score: 12:45 Eye Response: spontaneous(4). Verbal Response: oriented(5). Motor Response: obeys ld1 commands(6). Total: 15. 12:58 Eye Response: spontaneous(4). Verbal Response: oriented(5). Motor Response: obeys rn commands(6). Total: 15. 13:20 Eye Response: spontaneous(4). Verbal Response: oriented(5). Motor Response: obeys rn commands(6). Total: 15. Trauma Score (Adult): 12:45 Eye Response: spontaneous(1); Verbal Response: oriented(1); Motor Response: obeys ld1 commands(2); Systolic BP: > 89 mm Hg(4); Respiratory Rate: 10 to 29 per min(4); [place] Score: 15; Trauma Score: 12 MDM: 12:48 Patient medically screened. rn 13:20 Differential diagnosis: Contusion of Hematoma on Laceration of Intracranial bleed- rn Concussion cerebral contusion. Data reviewed: vital signs, nurses notes, lab test result(s), radiologic studies, CT scan, and as a result, I will discharge patient. Counseling: I had a detailed discussion with the patient and/or guardian regarding: the historical points, exam findings, and any diagnostic results supporting the discharge/admit diagnosis, lab results, radiology results, the need for outpatient follow up, to return to the emergency department if symptoms worsen or persist or if there are any questions or concerns that arise at home. Special discussion: Based on the patient's history, exam and DX evaluation, there is no indication for emergent intervention or inpatient [place]. It is understood by the patient/guardian that if the SXs persist or worsen they need to return immediately for re-evaluation. I discussed with the patient/guardian in detail that at this point there is no indication for admission to the hospital. It is understood, however, that if the symptoms persist or worsen the patient needs to return immediately for re-evaluation. ED course: NO acute findings on CT head, already applied tissue adhesive and looks good, no bleeding, will apply steri-strips for support, dc home with return precautions. . 10/06 12:54 Order name: CBC with Diff; Complete Time: 13:17 rn 10/06 12:54 Order name: Basic Metabolic Panel; Complete Time: 13:25 rn 10/06 12:49 Order name: CT Head Brain wo Cont; Complete Time: 13:17 rn 10/06 12:54 Order name: IV Start; Complete Time: 13:36 rn 10/06 12:54 Order name: Protime (+inr); Complete Time: 13:17 rn 10/06 12:54 Order name: Ptt, Activated; Complete Time: 13:17 rn Administered Medications: No medications were administered Disposition Summary: 10/06/21 13:23 Discharge Ordered Location: Home rn Problem: new rn Symptoms: have improved rn Condition: Stable rn Diagnosis - Unspecified injury of head, initial encounter rn - Laceration without foreign body of scalp - Left Drifting rn Followup: rn - With: Private Physician - When: As needed - Reason: Recheck today's complaints, Re-evaluation by your physician Discharge Instructions: - Discharge Summary Sheet rn - Tissue Adhesive shoe patternmaker - Head Injury, Adult rn - Laceration Care, Adult rn Forms: - Medication Reconciliation Form rn - Thank You Letter rn - Antibiotic metal furniture polisher - Prescription Opioid Use rn Signatures: Dispatcher [employer] Cuong Mensah MD MD rn Dibbern, Lauren, RN RN ld1
--- NOTE | 2021-10-06 13:23 | ER ---
Nurse's Notes [facility] Name: Kyrie Quispe Age: 61 yrs Sex: Male : 1960 Arrival Date: 10/06/2021 Time: 12:37 Bed 4 Private MD: Torito Perez Diagnosis: Unspecified injury of head, initial encounter;Laceration without foreign body of scalp-Left Almo Presentation: 10/06 12:45 Chief complaint: Patient states: Pt fell and hit left anglican at 1030 - Pt states ld1 there was puddle of blood. Pt left pupil is larger than right pupil. Pt does not know if he lost consciousness. Pt takes 81 mg of aspirin daily. Care prior to arrival: None. Mechanism of Injury: Fall from standing position. Trauma event details: Injury occurred in the [facility]. 12:45 Acuity: RONNIE 3 ld1 12:45 Method Of Arrival: Wheelchair ld1 12:50 Coronavirus screen: At this time, the client does not indicate any symptoms associated ld1 with coronavirus-19. Ebola Screen: No symptoms or risks identified at this time. Initial Sepsis Screen: Does the patient meet any 2 criteria? No. Patient's initial sepsis screen is negative. Does the patient have a suspected source of infection? No. Patient's initial sepsis screen is negative. Risk Assessment: Do you want to hurt yourself or someone else? Patient reports no desire to harm self or others. Onset of symptoms was October 06, 2021. Triage Assessment: 12:50 General: Appears in no apparent distress. comfortable, Behavior is calm, cooperative, ld1 appropriate for age. Pain: Denies pain. EENT: Denies pain blurred vision. Neuro: Level of Consciousness is awake, alert, obeys commands, Oriented to person, place, time, situation. Cardiovascular: Capillary refill < 3 seconds Patient's skin is warm and dry. Respiratory: Airway is patent Respiratory effort is even, unlabored. Trauma Activation: Alert Physician: ED Physician; Name: Dr. Rivera; Notified At: 12:53; Arrived At: 12:50 Physician: General Surgeon; Name: ; Notified At: 12:53; Arrived At: Physician: Radiology; Name: ; Notified At: 12:53; Arrived At: Physician: Respiratory; Name: ; Notified At: 12:53; Arrived At: Physician: Lab; Name: ; Notified At: 12:53; Arrived At: 12:50 Trauma Activation: Alert Physician: ED Physician; Name: dede; Notified At: ; Arrived At: Physician: General Surgeon; Name: ; Notified At: ; Arrived At: Physician: Radiology; Name: ; Notified At: ; Arrived At: Physician: Respiratory; Name: ; Notified At: ; Arrived At: Physician: Lab; Name: ; Notified At: ; Arrived At: Historical: - PMHx: 12:50 Heart Murmur; hemochromatosis; PROSTATE CA; Seizures; ld1 - PSHx: 12:50 None; ld1 - Immunization history: Last tetanus immunization: unknown. - Social history:: Smoking status: Patient denies any tobacco usage or history of. Patient/guardian denies using alcohol. - Family history:: not pertinent. - Hospitalizations: : No recent hospitalization is reported. Screenin:45 Abuse screen: Denies threats or abuse. Denies injuries from another. Tuberculosis ld1 screening: No symptoms or risk factors identified. 12:56 Nutritional screening: No deficits noted. Fall Risk IV access (20 points). light Primary Survey: 12:45 NO uncontrolled hemorrhage observed. Breathing/Chest: Respiratory pattern: regular, ld1 Respiratory effort: spontaneous, unlabored. Circulation: Pulses: palpable right radial artery and left radial artery. Skin color: pink, Skin temperature: warm. Disability Alert. Exposure/Environment: All clothing and personal items were removed. Forensic evidence collection is not deemed to be indicated at this time. Items placed in patient belonging bag. There is no evidence of uncontrolled external bleeding. Reassessment Breathing/Chest Respiratory pattern Regular Circulation Heart rhythm Sinus rhythm Disability Alert. Assessment: 12:45 General: Appears in no apparent distress. comfortable, Behavior is calm, cooperative, ld1 appropriate for age. Pain: Denies pain. Neuro: Level of Consciousness is awake, alert, obeys commands, Oriented to person, place, time, situation. EENT: Denies pain blurred vision. Respiratory: Airway is patent Respiratory effort is even, unlabored. 13:04 EENT: Eyes left eye dilated . Denies. Injury Description: Laceration sustained to outer light aspect of left eyebrow a small amount of bleeding noted at this time. Vital Signs: 12:45 BP 98 / 72; Pulse 89; Resp 18; Temp 98.3(TE); Pulse Ox 100% ; Weight 71.67 kg; Height 6 ld1 ft. 1 in. (185.42 cm); Pain 0/10; 13:08 BP 108 / 75; Pulse 84; Resp 17 S; Pulse Ox 100% on R/A; Pain 0/10; jg9 12:45 Body Mass Index 20.85 (71.67 kg, 185.42 cm) ld1 Ivan Coma Score: 12:45 Eye Response: spontaneous(4). Verbal Response: oriented(5). Motor Response: obeys ld1 commands(6). Total: 15. 12:58 Eye Response: spontaneous(4). Verbal Response: oriented(5). Motor Response: obeys rn commands(6). Total: 15. 13:20 Eye Response: spontaneous(4). Verbal Response: oriented(5). Motor Response: obeys rn commands(6). Total: 15. Trauma Score (Adult): 12:45 Eye Response: spontaneous(1); Verbal Response: oriented(1); Motor Response: obeys ld1 commands(2); Systolic BP: > 89 mm Hg(4); Respiratory Rate: 10 to 29 per min(4); [place] Score: 15; Trauma Score: 12 ED Course: 12:37 Patient arrived in ED. am2 12:37 Torito Perez MD is Private Physician. am2 12:45 Patient has correct armband on for positive identification. Patient maintains SpO2 ld1 saturation greater than 95% on room air. 12:45 Patient maintains SpO2 saturation greater than 95% on room air. ld1 12:48 Triage completed. ld1 12:48 Cuong Rivera MD is Attending Physician. rn 12:50 Arm band placed on left wrist. ld1 12:56 No provider procedures requiring assistance completed. light 12:56 Thermoregulation: warm blanket given to patient. light 13:01 Laurie Donovan RN is Primary Nurse. jg9 13:02 Inserted saline lock: 20 gauge in left antecubital area, using aseptic technique. Blood jg9 collected. 13:07 CT Head Brain wo Cont In Process Unspecified. EDMS 13:34 IV discontinued. jg9 Administered Medications: No medications were administered Intake: 12:56 PO: 0ml; Total: 0ml. light Outcome: 13:23 Discharge ordered by . rn 13:34 Discharged to home via wheelchair. jg9 13:34 Condition: stable 13:34 Discharge instructions given to patient, significant other, Instructed on discharge instructions, follow up and referral plans. Demonstrated understanding of instructions, follow-up care. 13:34 Patient's length of stay was not longer than 2 hours. jg9 13:34 Patient left the ED. jg9 Signatures: Dispatcher [employer] EDMS Cuong Rivera MD MD rn Moreno, Amanda am2 Dibbern, Lauren RN RN demar1 Laurie Donovan RN RN jg9 Au-StagerPily RN RN light
[2021-10-06 14:07] VITALS: TEMP 98.3; O2SAT 100
[2021-10-06 14:08] VITALS: BP 108/75
== END 2021-10-06 13:34 | disposition home or self-care (01) ==
LOC: ER 12:34
DX: S01.01XA Laceration without foreign body of scalp, initial encounter (principal); W18.39XA Other fall on same level, initial encounter; Y92.008 Other place in unspecified non-institutional (private) residence as the place of occurrence of the external cause; Z85.46 Personal history of malignant neoplasm of prostate
CPT/HCPCS: 36415; 70450; 80048; 85025; 85610; 85730; 99284

== ENCOUNTER 2021-12-27 07:27 | Day surgery (SDC) | payer BC ==
[2021-12-27 08:07] VITALS: TEMP 97.9; BMI 20.2
[2021-12-27 08:11] LABS: Absolute Lymphocytes (CBC) 1.8 K/uL (0.7-4.9); Hematocrit 38.7 % (39.6-49.0); Lymphocytes % 37.7 % (15.3-44.8); MPV 9.5 fL (7.6-11.3); RBC Red Blood Cell Count 4.23 M/uL (4.33-5.43)
[2021-12-27 08:17] LABS: Protime INR 1.12
[2021-12-27 08:27] LABS: Albumin 3.4 g/dL (3.4-5.0); Bilirubin Total 0.4 mg/dL (0.2-1.0); Potassium 3.5 mmol/L (3.5-5.1); Protein, Total 8.1 g/dL (6.4-8.2)
--- NOTE | 2021-12-27 11:23 | RAD REPORT ---
EXAM DESCRIPTION: CT - Lung Biopsy Perc w/CT - 12/27/2021 11:08 am CLINICAL HISTORY: left lung mass COMPARISON: No comparisons FINDINGS: Preoperative diagnosis: Pleural based mass in the left lung Post operative diagnosis: Same Conscious Sedation: None. Patient was continuously monitored by nursing staff. Contrast used: NONE Estimated blood loss: less than 5 mL Specimens: 4 The patient was placed prone on the table and the posterior hemithorax area was prepped and draped in the usual sterile fashion. 1% lidocaine was infiltrated into the subcutaneous tissues for local anes thesia. Under computed tomographic guidance, a gauge introducer was advanced into the lesion. Subseq uently, a 18 gauge, 16 cm long, 20 mm throw core biopsy gun was advanced into the lesion and 4 cores were obtained. Postprocedure imaging demonstrated no complications. Samples were given to pathology for analysis. Th e patient tolerated the procedure without immediate complication and transferred to the recovery room in stable condition. IMPRESSION: Technically successful CT-guided biopsy of a pleural based mass in the left lung. No imm ediate complications. All CT scans are performed using dose optimization technique as appropriate and may include automated exposure control or mA/KV adjustment according to patient size.
[2021-12-27 12:18] VITALS: BP 98/74; O2SAT 97
== END 2021-12-27 12:10 | disposition home or self-care (01) ==
LOC: DS 07:27
PROVIDERS: ATTEND Internal Medicine Sleep Medicine
PROC: 0BDL4ZX Extraction of Left Lung, Percutaneous Endoscopic Approach, Diagnostic (ICD-10-PCS; principal; 2021-12-27)
DX: C34.92 Malignant neoplasm of unspecified part of left bronchus or lung (principal)
CPT/HCPCS: 36415; 77012; 80053; 85025; 85610; 85730; 88305

== ENCOUNTER 2022-01-21 11:58 | Emergency (ER) | payer BC ==
[2022-01-21 13:05] LABS: Absolute Lymphocytes (CBC) 1.7 K/uL (0.7-4.9); Hematocrit 36.4 % (39.6-49.0); Lymphocytes % 30.5 % (15.3-44.8); MCV 93.9 fL (80-100); MPV 9.6 fL (7.6-11.3); RBC Red Blood Cell Count 3.88 M/uL (4.33-5.43)
[2022-01-21 13:12] LABS: Protime INR 1.21
--- NOTE | 2022-01-21 13:12 | RAD REPORT ---
EXAM DESCRIPTION: SARAHITrihealtht Single View01/21/2022 12:52 pm CLINICAL HISTORY: Dizziness/lung mass COMPARISON: December 2020 FINDINGS: Left suprahilar mass extending into the mediastinum and left hilum again demonstrated. Additional left lung mass is without obvious change Right lung appears clear of acute infiltrate. The heart is normal size
--- NOTE | 2022-01-21 13:20 | RAD REPORT ---
EXAM DESCRIPTION: CT - Head Brain Wo Cont - 01/21/2022 1:08 pm CLINICAL HISTORY: Dizziness COMPARISON: October 2021 TECHNIQUE: Computed axial tomography of the head was obtained. IV contrast was not requested. All CT scans are performed using dose optimization technique as appropriate and may include automated exposure control or mA/KV adjustment according to patient size. FINDINGS: An intracranial bleed is not seen . The ventricles are normal in caliber. No extra-axial fluid collection is noted. Small low-density area within the left parietal lobe may represent an old infarction. Fluid within the sinuses/ mastoids is not seen. IMPRESSION: No acute intracranial abnormality is seen. If patient's symptoms persist MRI of the bra in would be recommended.
[2022-01-21 13:39] LABS: Potassium 3.5 mmol/L (3.5-5.1); Troponin High Sensitivity 4.9 pg/mL (<58.9)
--- NOTE | 2022-01-21 13:58 | ER ---
Nurse's Notes [facility] Name: Kyrie Quispe Age: 61 yrs Sex: Male : 1960 Arrival Date: 01/21/2022 Time: 12:13 Bed 16 Private MD: Diagnosis: Dehydration;Benign paroxysmal vertigo Presentation: 01/21 12:14 Chief complaint: EMS states: Loss of balance when walking today, did not attempt to get hb out of bed yesterday, last known normal unknown. Pt recently diagnosed with stage IV lung CA, on morphine q 6. 20g LAC. Hx of COPD. Coronavirus screen: At this time, the client does not indicate any symptoms associated with coronavirus-19. Ebola Screen: No symptoms or risks identified at this time. Initial Sepsis Screen: Does the patient meet any 2 criteria?. Risk Assessment: Do you want to hurt yourself or someone else? Patient reports no desire to harm self or others. Onset of symptoms is unknown. 12:14 Method Of Arrival: EMS: [facility] hb 12:14 Acuity: RONNIE 3 hb 13:08 Initial Sepsis Screen: Does the patient have a suspected source of infection? No. hb Patient's initial sepsis screen is negative. Triage Assessment: 12:18 General: Appears in no apparent distress. Behavior is calm, cooperative. Pain: Pain hb currently is 2 out of 10 on a pain scale. Neuro: Level of Consciousness is obeys commands, lethargic, Oriented to person, place, time, situation. Cardiovascular: Patient's skin is warm and dry. Respiratory: Respiratory effort is even, unlabored, Respiratory pattern is tachypnea. Historical: - Allergies: 12:18 No Known Allergies; hb - PMHx: 12:18 Heart Murmur; hemochromatosis; PROSTATE CA; Seizures; hb - Immunization history:: Adult Immunizations up to date. - Social history:: Smoking status: Patient/guardian denies using tobacco. Screenin:19 Abuse screen: Denies threats or abuse. Denies injuries from another. Nutritional hb screening: No deficits noted. Tuberculosis screening: No symptoms or risk factors identified. Fall Risk Total [place] Fall Scale indicates Low Risk Score (25-44 pts). Fall prevention measures have been instituted. Frequent Obs/Assesments occuring Family Present and informed to notify staff if they need to leave bedside As available Patient and Family Educated on Fall Prevention Program and strategies. Assessment: 12:19 General: see triage assessment. hb 13:07 Reassessment: Patient appears in no apparent distress at this time. No changes from hb previously documented assessment. Patient and/or family updated on plan of care and expected duration. Pain level reassessed. Vital Signs: 12:14 BP 105 / 72; Pulse 75; Resp 28; Temp 98.3; Pulse Ox 95% on R/A; Weight 79.38 kg; Height hb 5 ft. 11 in. (180.34 cm); Pain 2/10; 12:45 BP 102 / 68; Pulse 69; Resp 23; Pulse Ox 95% on R/A; hb 12:14 Body Mass Index 24.41 (79.38 kg, 180.34 cm) hb ED Course: 12:13 Patient arrived in ED. hb 12:15 Monster Dupont is PHCP. jl9 12:15 Brandan Holley DO is Attending Physician. jl9 12:18 Triage completed. hb 12:18 Arm band placed on. hb 12:19 Patient has correct armband on for positive identification. Bed in low position. Call hb light in reach. 12:36 Pily Palma, RN is Primary Nurse. hb 12:50 Maintain EMS IV. Dressing intact. Good blood return noted. Site clean \T\ dry. Gauge \T\ hb site: 20g LAC. 12:54 Stroke CXR 1 View In Process Unspecified. EDMS 13:09 Head Brain Wo Cont In Process Unspecified. EDMS 14:19 No provider procedures requiring assistance completed. IV discontinued, intact, hb bleeding controlled, No redness/swelling at site. Administered Medications: No medications were administered Medication: 13:08 VIS not applicable for this client. hb Outcome: 13:58 Discharge ordered by MD. beckham 14:19 Discharged to home via wheelchair, with significant other. hb 14:19 Condition: stable 14:19 Discharge instructions given to patient, significant other, Instructed on discharge instructions, follow up and referral plans. medication usage, Demonstrated understanding of instructions, follow-up care, medications, Prescriptions given X 1. 14:20 Patient left the ED. hb Signatures: Dispatcher [employer] EDMS Pily Palma, RN RN Monster De La Torre jl9
--- NOTE | 2022-01-21 13:59 | EDPHYS ---
Physician Documentation [facility] Name: Kyrie Quispe Age: 61 yrs Sex: Male : 1960 Arrival Date: 01/21/2022 Time: 12:13 Bed 16 Private MD: ED Physician Brandan Holley HPI: 01/21 12:33 This 61 yrs old Male presents to ER via EMS with complaints of Dizziness. jl9 12:33 The patient presents with generalized weakness, feeling off balance. Onset: The jl9 symptoms/episode began/occurred acutely, 1 hour(s) ago. Context: occurred at home. Associated signs and symptoms: Pertinent positives: nausea, vomiting, Pertinent negatives: blurred vision, chest pain, confusion. Severity of symptoms: in the emergency department the symptoms have improved. 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 , Ambulation: walks without assistance, Speech: normal. . Historical: - Allergies: 12:18 No Known Allergies; hb - PMHx: 12:18 Heart Murmur; hemochromatosis; PROSTATE CA; Seizures; hb - Immunization history:: Adult Immunizations up to date. - Social history:: Smoking status: Patient/guardian denies using tobacco. ROS: 12:35 Constitutional: Negative for fever, chills, and weight loss, Eyes: Negative for injury, jl9 pain, redness, and discharge, ENT: Negative for injury, pain, and discharge, Neck: Negative for injury, pain, and swelling, Cardiovascular: Negative for chest pain, palpitations, and edema, Respiratory: Negative for shortness of breath, cough, wheezing, and pleuritic chest pain. 12:35 Back: Negative for injury and pain, : Negative for injury, bleeding, discharge, and swelling, MS/Extremity: Negative for injury and deformity, Skin: Negative for injury, rash, and discoloration, Neuro: Negative for headache, numbness, tingling, and seizure, Psych: Negative for depression, anxiety, suicide ideation, homicidal ideation, and hallucinations, Allergy/Immunology: Negative for hives, rash, and allergies, Endocrine: Negative for neck swelling, polydipsia, polyuria, polyphagia, and marked weight changes, Hematologic/Lymphatic: Negative for swollen nodes, abnormal bleeding, and unusual bruising. 12:35 Abdomen/GI: Positive for nausea. Exam: 12:36 Constitutional: This is a well developed, well nourished patient who is awake, alert, jl9 and in no acute distress. 12:36 Head/Face: Normocephalic, atraumatic. Eyes: Pupils equal round and reactive to light, extra-ocular motions intact. Lids and lashes normal. Conjunctiva and sclera are non-icteric and not injected. Cornea within normal limits. Periorbital areas with no swelling, redness, or edema. ENT: Mucous membranes moist. Neck: Trachea midline, no thyromegaly or masses palpated, and no cervical lymphadenopathy. Supple, full range of motion without nuchal rigidity, or vertebral point tenderness. No Meningismus. Chest/axilla: Normal chest wall appearance and motion. Nontender with no deformity. No lesions are appreciated. Cardiovascular: Regular rate and rhythm with a normal S1 and S2. No gallops, murmurs, or rubs. Normal PMI, no JVD. No pulse deficits. Respiratory: Lungs have equal breath sounds bilaterally, clear to auscultation and percussion. No rales, rhonchi or wheezes noted. No increased work of breathing, no retractions or nasal flaring. Abdomen/GI: Soft, non-tender, with normal bowel sounds. No distension or tympany. No guarding or rebound. No evidence of tenderness throughout. Back: No spinal tenderness. No costovertebral tenderness. Full range of motion. Male : Normal genitalia with no discharge or lesions. Skin: Warm, dry with normal turgor. Normal color with no rashes, no lesions, and no evidence of cellulitis. MS/ Extremity: Pulses equal, no cyanosis. Neurovascular intact. Full, normal range of motion. Neuro: Awake and alert, GCS 15, oriented to person, place, time, and situation. Cranial nerves II-XII grossly intact. Motor strength 5/5 in all extremities. Sensory grossly intact. Cerebellar exam normal. Normal gait. Psych: Awake, alert, with orientation to person, place and time. Behavior, mood, and affect are within normal limits. Vital Signs: 12:14 BP 105 / 72; Pulse 75; Resp 28; Temp 98.3; Pulse Ox 95% on R/A; Weight 79.38 kg; Height hb 5 ft. 11 in. (180.34 cm); Pain 2/10; 12:45 BP 102 / 68; Pulse 69; Resp 23; Pulse Ox 95% on R/A; hb 12:14 Body Mass Index 24.41 (79.38 kg, 180.34 cm) hb MDM: 12:16 Patient medically screened. [facility] 13:56 Data reviewed: vital signs, nurses notes. [facility] 01/21 12:26 Order name: Basic Metabolic Panel; Complete Time: 13:40 01/21 12:26 Order name: CBC with Diff; Complete Time: 13:28 01/21 12:26 Order name: Protime (+inr); Complete Time: 13:28 01/21 12:26 Order name: Ptt, Activated; Complete Time: 13:28 01/21 12:26 Order name: Troponin High Sensitivity; Complete Time: 13:40 01/21 12:26 Order name: Stroke CXR 1 View; Complete Time: 13:28 01/21 12:26 Order name: EKG; Complete Time: 12:27 01/21 12:26 Order name: Cardiac monitoring; Complete Time: 12:49 01/21 12:26 Order name: EKG - Nurse/Tech; Complete Time: 13:43 01/21 12:26 Order name: IV Saline Lock; Complete Time: 12:49 01/21 12:26 Order name: Labs collected and sent; Complete Time: 12:49 01/21 12:26 Order name: NPO; Complete Time: 12:49 01/21 12:31 Order name: Head Brain Wo Cont; Complete Time: 13:28 EDOK 01/21 12:26 Order name: O2 Per Protocol; Complete Time: 12:50 01/21 12:26 Order name: O2 Sat Monitoring; Complete Time: 12:50 01/21 12:26 Order name: Stroke Swallow Screen; Complete Time: 12:50 Administered Medications: No medications were administered Disposition: 21:59 Co-signature as Attending Physician, Brandan SAENZ was immediately available on-site ms3 in the Emergency Department for consultation in the care of the patient. . Disposition Summary: 01/21/22 13:58 Discharge Ordered Location: Home jl9 Condition: Stable jl9 Diagnosis - Dehydration jl9 - Benign paroxysmal vertigo jl9 Followup: jl9 - With: Private Physician - When: 1 - 2 days - Reason: Recheck today's complaints, Continuance of care, Re-evaluation by your physician Discharge Instructions: - Discharge Summary Sheet jl9 - Dehydration, Adult jl9 - Vertigo, [id number] jl9 Forms: - Medication Reconciliation Form jl9 - Thank You Letter jl9 - Antibiotic Education jl9 - Prescription Opioid Use jl9 Prescriptions: - ondansetron 8 mg Oral tablet,disintegrating - take 1 tablet by ORAL route every 8 hours As needed; 20 tablet; Refills: 0, jl9 Product Selection Permitted Signatures: Dispatcher [employer] EDMS Pily Palma RN RN Brandan Tam DO DO ms3 Monster Dupont jl9 Corrections: (The following items were deleted from the chart) 12:31 12:27 CT-STROKE BRAIN W/O CONTRAST+CT.RAD.BRZ ordered. EDMS EDMS
[2022-01-21 14:34] VITALS: TEMP 98.3; O2SAT 95
[2022-01-21 14:36] VITALS: BP 102/68
== END 2022-01-21 14:20 | disposition home or self-care (01) ==
LOC: ER 11:58
DX: E86.0 Dehydration (principal); H81.10 Benign paroxysmal vertigo, unspecified ear; R53.1 Weakness; Z85.46 Personal history of malignant neoplasm of prostate
CPT/HCPCS: 36415; 70450; 71045; 80048; 84484; 85025; 85610; 85730; 99283

== ENCOUNTER 2022-05-12 06:10 | Inpatient (IN) | payer BC ==
--- OUTSIDE RECORDS SUMMARY | 2022-05-12 06:13 | XMS REPORT | Continuity of Care Document ---
:1960 Author Organization [facility] t Address [address] [place] [address] Care Team Providers Name Role Phone Pepper Donnelly MD Primary Care Physician JEAN JENKINS Attending Clinician Unavailable JESENIA AYALA Attending Clinician Unavailable EDNA BAIRES Attending Clinician Unavailable Radiology Attending Clinician Unavailable RADIOLOGY Attending Clinician Unavailable Manuel_Ale Attending Clinician Unavailable JESENIA AYALA Admitting Clinician Unavailable GHADA RAMIREZ Admitting Clinician Unavailable Raju_P Admitting Clinician Unavailable Payers Payer Name Policy Type Policy Number Effective Date Expiration Date S adam BCBS OUT OF [id number] 2018 2019 00:00:00 [facility] 00:00:00 [place]: PENELOPE [id number] 2013 [place] (PPO) 00:00:00 Problems Condition Condition Condition Status Onset Resolution Last Treating Co mments Source Name Details Category Date Date Treatment Clinician Date Prostate Prostate Disease Active [facility] cancer cancer 11-30 00:00: Hospita 00 l Allergies, Adverse Reactions, Alerts Allergy Allergy Status Severity Reaction(s) Onset Inactive Treating Comm ents Source Name Type Date Date Clinician NO KNOWN Drug Active Univers ALLERGIE Class ity of S [facility] Family History Family Member Diagnosis Comments Start Date Stop Date Source Natural father [facility] Natural [facility] Social History Social Habit Start Date Stop Date Quantity Comments Source Exposure to Not sure University of SARS-CoV-2 (event) [facility] History of tobacco Smokes tobacco [facility] use daily Hospital Alcohol intake 2018-03-25 2018-03-25 Current drinker [facility] 00:00:00 00:00:00 of alcohol Hospital (finding) Cigarettes smoked 2018-03-13 2018-03-13 [facility] per 00:[facility]:00 00:00:00 Hospita l day) - Reported Cigarette 2018-03-13 2018-03-13 [facility] pack-years 00:00:00 00:00:00 Hospital Tobacco use and 2018-03-13 2018-03-13 User of [facility] exposure 00:00:00 00:00:00 smokeless Hospital tobacco Sex Assigned At [birth year] [facility] 00:00:00 00:00:00 Hospital Smoking Status Start Date Stop Date Source Unknown if ever smoked [facility] Smokes tobacco daily 2018-03-13 00:00:00 [facility] Medications Ordered Filled Start Stop Current Ordering Indication Dosage Frequency Signature Comments Components Source Medication Medication Date Date Medication? Clinician (SIG) Name Name atenolol Yes 25mg QD Take 25 mg Met hodi (TENORMIN) 9-[address] 25 MG 15:23: daily. Hospita tablet 48 l levothyroxi Yes 50ug QD Take 50 Met h[facility] ne 4-[address] (SYNTHROID, 00:00: mouth once Hospita LEVOTHROID) 00 daily. l 25 MCG tablet Procedures Procedure Date / Time Performing Clinician Source Performed [facility] PATIENT FINANCIAL 2020-07-19 22:11:48 Doctor Unassigned, [facility] POLICY [facility] NO SHOW OR MISSED 2020-07-19 22:11:32 Doctor Yosi, [facility] APPOINTMENT POLICY [facility] ACKNOWLEDGEMENT NOTICE OF PRIVACY 2020-07-19 22:11:13 Doctor Yosi, [facility] PRACTICES [facility] CONSENT/REFUSAL FOR 2020-07-19 22:10:57 [facility] ASSIGNMENT OF BENEFITS 2020-07-19 22:10:43 Doctor Yosi, [facility] Plan of Care Planned Activity Planned Date Details Comments Source Future Scheduled 2022-05-11 HEPATITIS B VACCINES [facility] Test 00:19:09 (1 of 3 - 3-dose series) [code = HEPATITIS B VACCINES (1 of 3 - 3-dose series)] Future Scheduled 2022-05-11 COVID-19 VACCINE (#1) [facility] Test 00:19:09 [code = COVID-19 VACCINE (#1)] Future Scheduled 2022-05-11 COLONOSCOPY SCREENING [facility] Test 00:19:09 [code = COLONOSCOPY SCREENING] Future Scheduled 2022-05-11 SHINGLES VACCINES (1 [facility] Test 00:19:09 of 2) [code = SHINGLES VACCINES (1 of 2)] Future Scheduled 2022-05-11 INFLUENZA VACCINE [facility] Test 00:19:09 [code = INFLUENZA VACCINE] Encounters Start End Encounter Admission Attending Care Care Encounter Source Date/Time Date/Time Type Type Clinicians Facility Department ID 2021-10-11 Outpatient [facility] [id number] [place] 09:17:36 [id number] [facility] 2021-08-03 Outpatient [facility] [id number] [place] 15:22:[address] [facility] 2022-05-27 2022-05-27 Outpatient IE EDSON [id number] [facility] 15:15:00 15:15:00 10 [facility] 2022-05-06 2022-05-06 Outpatient IE IE [id number] [facility] 09:30:00 09:30:00 09 [facility] 2022-02-22 2022-02-22 Outpatient IE EDSON [id number] [facility] 13:15:00 13:15:00 08 [facility] 2022-01-31 2022-01-31 Outpatient IE IE [id number] [facility] 15:30:00 15:30:00 07 [facility] 2021-11-16 2021-11-16 Outpatient IE EDSON [id number] [facility] 15:45:00 15:45:00 04 [facility] 2021-11-02 2021-11-02 Outpatient IE IE [id number] [facility] 11:00:00 11:00:00 06 [facility] 2021-09-21 2021-09-21 Outpatient MHIE MHIE [id number] [facility] 11:00:00 11:00:00 05 l Carlos 2021-09-06 2021-09-12 Outpatient E JAMIE, [facility] [id number] [facility] 21:22:00 16:30:00 JESENIA 2021-08-26 2021-09-05 Inpatient E VIRY, [id number] 07:13:00 13:27:00 EDNA 2021-08-16 2021-08-16 Outpatient MHIE MHIE [id number] [facility] 15:15:00 15:15:00 02 l Carlos 2021-08-14 2021-08-14 Outpatient MHIE MHIE [id number] [facility] 16:15:00 16:15:00 03 zackary Carlos 2021-07-31 2021-07-31 Outpatient MHIE MHIE [id number] [facility] 15:00:00 15:00:00 01 zackary Gonzalez 2021-07-20 2021-07-20 Outpatient MHIE MHIE [id number] [facility] 15:00:00 15:00:00 00 zackary Gonzalez 2020-07-19 2020-07-19 Hospital Radiology [facility] [id number] Univers 16:16:17 23:59:00 Encounter [place] [id number] ity [facility] [id number] [facility] [id number] [address] 2020-07-19 2020-07-19 Outpatient R RADIOLOGY [facility] [id number] Univers 00:00:00 00:00:00 ity of [facility] 2020-06-06 2020-06-06 Outpatient Raju_P MMG MMG [id number] [place] 11:48:00 11:48:00 [facility] Results This patient has no known results.
[2022-05-12] MEDS ORDERED: NA CHLORIDE 0.9% 1,000 ML ONE (06:40)
[2022-05-12 07:03] LABS: Absolute Lymphocytes (CBC) 0.7 K/uL (0.7-4.9); Hematocrit 30.7 % (39.6-49.0); Lymphocytes % 6.1 % (15.3-44.8); MCV 106.5 fL (80-100); MPV 8.5 fL (7.6-11.3); RBC Red Blood Cell Count 2.89 M/uL (4.33-5.43)
[2022-05-12 07:22] LABS: Potassium 4.2 mmol/L (3.5-5.1); Troponin High Sensitivity 19.4 pg/mL (<58.9)
--- NOTE | 2022-05-12 07:39 | RAD REPORT ---
EXAM DESCRIPTION: CT - Head Brain Wo Cont - 05/12/2022 7:21 am CLINICAL HISTORY: Seizure Headache, drowsiness, seizure COMPARISON: Head Brain Wo Cont dated 01/21/2022; Head Brain Wo Cont dated 10/06/2021 TECHNIQUE: All CT scans are performed using dose optimization technique as appropriate and may inclu de automated exposure control or mA/KV adjustment according to patient size. FINDINGS: No intracranial hemorrhage, hydrocephalus or extra-axial fluid collection.No areas of brai n edema or evidence of midline shift. The paranasal sinuses and mastoids are clear. The calvarium is intact. IMPRESSION: No acute intracranial abnormality.
--- NOTE | 2022-05-12 07:40 | RAD REPORT ---
EXAM DESCRIPTION: RAD - Chest Single View - 05/12/2022 6:51 am CLINICAL HISTORY: seizure Chest pain. COMPARISON: Chest Single View dated 01/21/2022; Chest Pa And Lat (2 Views) dated 05/04/2021; Chest Si ngle View dated 04/16/2021; CHEST PA AND LAT 2 VIEW dated 10/09/2007 FINDINGS: Portable technique limits examination quality. The lungs are emphysematous. Haziness in the left lung base is likely a combination of infiltrate and small pleural effusion. The heart is normal in size. No displaced fractures. IMPRESSION: [id number] left base pneumonia.
[2022-05-12] MEDS ORDERED: AZITHROMYCIN 500 MG INJ IVPB ONE (08:00)
[2022-05-12] MEDS ORDERED: CEFTRIAXONE 1000 MG/VIAL ONE (08:00)
[2022-05-12] MEDS ORDERED: KETOROLAC 30 MG/ML INJ ONE (08:00)
[2022-05-12] MEDS ORDERED: NA CHLORIDE 0.9% 50 ML IV ONE (08:01)
[2022-05-12] MEDS ORDERED: NA CHLORIDE 0.9% 250 ML ONE (08:01)
[2022-05-12 08:22] LABS: Anisocytosis 1+; Blood Morphology Comment NOTED (NOT SEEN); Macrocytosis 1+; Platelet Estimate ADEQ; White Blood Cell Scan OK (OK)
[2022-05-12 08:48] LABS: Protime INR 1.48
[2022-05-12] MEDS ORDERED: FENTANYL 100 MCG/PATCH TD ONE (09:00)
[2022-05-12 09:01] LABS: AST/SGOT 119 U/L (15-37); Albumin 2.6 g/dL (3.4-5.0); Alkaline Phosphatase 107 U/L (45-117); Bilirubin Direct 0.3 mg/dL (0-0.2); Bilirubin Total 0.7 mg/dL (0.2-1.0); Protein, Total 6.4 g/dL (6.4-8.2)
[2022-05-12 09:09] LABS: ALT/SGPT < 10 U/L (12-78)
[2022-05-12] MEDS ORDERED: ACETAMINOPHEN 500 MG TAB ONE (09:57)
--- NOTE | 2022-05-12 11:02 | EDPHYS ---
Physician Documentation [facility] Name: Kyrie Quispe Age: 61 yrs Sex: Male : 1960 Arrival Date: 05/12/2022 Time: 06:15 Bed 15 Private MD: ED Physician Brandan Holley HPI: 05/12 06:27 This 61 yrs old Male presents to ER via Unassigned with complaints of Probable Seizure. kdr 06:27 EMS has brought the patient to the ED after he reportedly had a seizure at home. kdr Patient has cancer with metastases that apparently involve the brain. Patient history is currently limited and family is not present to fill in any blanks about what may have transpired prior to arrival. On initial exam, the patient seems aware that he may have had a seizure but is otherwise confused and intermittently responsive appropriately to questions. He does not seem acutely ill or toxic at this time but does seem to either be postictal or have some mass-effect secondary to metastatic CA. Awaiting to arrive to be able to give more detailed context.. Onset: The symptoms/episode began/occurred just prior to arrival. The severity and duration are unknown at this time. Historical: - Allergies: 06:31 No Known Allergies; ke1 - PMHx: 06:31 Heart Murmur; hemochromatosis; PROSTATE CA; Seizures; ke1 - Immunization history:: Adult Immunizations unknown. - Social history:: Smoking status: Patient reports the use of cigarette tobacco products, smokes one-half pack cigarettes per day, Smoking status: unknown. ROS: 06:27 Constitutional: Unobtainable as the patient is intermittently confused and neither kdr postictal or with mass-effect from the metastatic CA Exam: 06:27 Constitutional: This is a well developed, well nourished patient who is awake, alert, kdr and in mild distress. Head/Face: Normocephalic, atraumatic. Eyes: Pupils equal round and reactive to light, extra-ocular motions intact. Lids and lashes normal. Conjunctiva and sclera are non-icteric and not injected. Cornea within normal limits. Periorbital areas with no swelling, redness, or edema. Neck: Trachea midline, no thyromegaly or masses palpated, and no cervical lymphadenopathy. Supple, full range of motion without nuchal rigidity, or vertebral point tenderness. No Meningismus. Chest/axilla: Normal chest wall appearance and motion. Nontender with no deformity. No lesions are appreciated. Cardiovascular: Regular rate and rhythm with a normal S1 and S2. No gallops, murmurs, or rubs. Normal PMI, no JVD. No pulse deficits. Respiratory: Lungs have equal breath sounds bilaterally, clear to auscultation and percussion. No rales, rhonchi or wheezes noted. No increased work of breathing, no retractions or nasal flaring. Abdomen/GI: Soft, non-tender, with normal bowel sounds. No distension or tympany. No guarding or rebound. No evidence of tenderness throughout. Back: No spinal tenderness. No costovertebral tenderness. Full range of motion. Skin: Warm, dry with normal turgor. Normal color with no rashes, no lesions, and no evidence of cellulitis. MS/ Extremity: Pulses equal, no cyanosis. Neurovascular intact. Full, normal range of motion. 06:27 Neuro: Orientation: to person, Mentation: inappropriate for stated age, slow to respond, confused, Memory: no acute changes, Motor: moves all fours, Sensation: no obvious gross deficits. 08:00 ECG was reviewed by the Attending Physician. ms3 Vital Signs: 06:28 BP 105 / 78; Pulse 126; Resp 19; Temp 100.4; Pulse Ox 95% on R/A; Weight 61.69 kg; ke1 Height 6 ft. 03 in. (190.50 cm); 08:20 BP 113 / 70; Pulse 116; Resp 20; Temp 99.9(O); Pulse Ox 100% on R/A; Pain 7/10; db 09:00 BP 105 / 77; Pulse 113; Resp 18; Pulse Ox 100% ; db 10:05 Pulse 112 MON; Resp 20; Temp 98.9(O); Pulse Ox 100% on R/A; db 11:30 BP 98 / 72; Pulse 106; Resp 14; Pulse Ox 97% ; db 12:30 BP 99 / 68; Pulse 105; Resp 12; Temp 97.9(O); Pulse Ox 98% on R/A; db 06:28 Body Mass Index 17.00 (61.69 kg, 190.50 cm) ke1 [place] Coma Score: 06:31 Eye Response: spontaneous(4). Verbal Response: confused(4). Motor Response: obeys ke1 commands(6). Total: 14. 07:52 Eye Response: spontaneous(4). Verbal Response: confused(4). Motor Response: obeys db commands(6). Total: 14. MDM: 07:11 Patient medically screened. ms3 07:33 ED course: Discussed end of life care with patient's and she wants patient to be ms3 DNR and is attempting to have patient placed on hospice. Case management consulted for hospice placement.. 11:01 Data reviewed: vital signs, nurses notes, lab test result(s), radiologic studies, and ms3 as a result, I will admit patient. Counseling: I had a detailed discussion with the patient and/or guardian regarding: the historical points, exam findings, and any diagnostic results supporting the discharge/admit diagnosis, lab results, radiology results, the need for further work-up and treatment in the hospital. ED course: Discussed case with Dr Aragon and he accepts patient. Discussed plan with patient and family and they understand/ agree with plan.. 05/12 06:25 Order name: Basic Metabolic Panel; Complete Time: 07:43 kdr 05/12 06:25 Order name: CBC with Diff; Complete Time: 09:26 kdr 05/12 06:25 Order name: NT PRO-BNP; Complete Time: 07:43 kdr 05/12 06:25 Order name: Troponin HS; Complete Time: 07:43 kdr 05/12 07:11 Order name: CBC Smear Scan; Complete Time: 09:26 EDMS 05/12 07:44 Order name: Blood Culture Adult (2) ms3 05/12 06:25 Order name: XRAY Chest (1 view); Complete Time: 07:43 kdr 05/12 06:25 Order name: CT Head Brain wo Cont; Complete Time: 07:43 kdr 05/12 07:44 Order name: Lactate; Complete Time: 10:03 ms3 05/12 07:44 Order name: Protime (+inr); Complete Time: 09:26 ms3 05/12 07:44 Order name: Ptt, Activated; Complete Time: 09:26 ms3 05/12 07:44 Order name: LFT's; Complete Time: 09:26 ms3 05/12 11:00 Order name: SARS RAPID eb 11/06 06:25 Order name: EKG; Complete Time: 06:26 kdr 05/12 06:25 Order name: Cardiac monitoring; Complete Time: 06:26 kdr 05/12 06:25 Order name: EKG - Nurse/Tech; Complete Time: 06:54 kdr 05/12 06:25 Order name: IV Saline Lock; Complete Time: 06:55 kdr 05/12 06:25 Order name: Labs collected and sent; Complete Time: 06:55 kdr 05/12 06:25 Order name: O2 Per Protocol; Complete Time: 06:55 kdr 05/12 06:25 Order name: O2 Sat Monitoring; Complete Time: 06:55 kdr 05/12 07:44 Order name: Accucheck; Complete Time: 08:55 ms3 05/12 07:44 Order name: IV Saline Lock - Large Bore; Complete Time: 08:55 ms3 05/12 07:44 Order name: Vital Signs; Complete Time: 08:55 ms3 05/12 08:40 Order name: Social Service Consult EDMS EC:00 Rate is 122 beats/min. Rhythm is regular. QRS [place] is Normal. [place] interval is normal. ms3 QRS interval is normal. Clinical impression: Sinus tachycardia. Interpreted by me. Reviewed by me. Administered Medications: 06:59 Drug: NS 0.9% 1000 ml Route: IV; Rate: 1 bolus; Site: left antecubital; ke1 10:04 Follow up: Response: No adverse reaction; IV Status: Completed infusion; IV Intake: db 1000ml 08:12 Drug: Ketorolac 10 mg Route: IVP; Site: left antecubital; db 09:54 Follow up: Response: No adverse reaction db 08:35 Drug: Rocephin (cefTRIAXone) 1 grams Route: IV; Rate: calculated rate; Site: left db antecubital; 08:54 Follow up: Response: No adverse reaction; IV Status: Completed infusion; IV Intake: 50mldb 08:35 Drug: fentaNYL Patch 100 mcg/hr 1 patches Route: Transdermal; Site: affected area; db 09:55 Follow up: Response: No adverse reaction db 08:46 Drug: AZITHromycin 500 mg Route: IVPB; Infused Over: 1 hrs; Site: left antecubital; db 09:55 Follow up: Response: No adverse reaction; IV Status: Completed infusion; IV Intake: db 250ml 10:04 Drug: Tylenol 1000 mg Route: PO; db 10:32 Follow up: Response: No adverse reaction db Disposition Summary: 05/12/22 11:01 Hospitalization Ordered Hospitalization Status: Observation ms3 Provider: Jason Aragon ms3 Location: Telemetry/MedSurg (observation) ms3 Condition: Stable ms3 Problem: new ms3 Symptoms: are unchanged ms3 Bed/Room Type: Standard ms3 Room Assignment: 402(05/12/22 13:32) eb Diagnosis - Metastatic cancer ms3 - Pneumonia ms3 - Low back pain ms3 Forms: - Medication Reconciliation Form ms3 - SBAR form ms3 Signatures: Dispatcher [employer] EDMS Roney Thomas MD MD kdr Botello, Elizabeth eb Sims, Marcus, DO DO ms3 Jose Rowe RN RN keEmily Chang RN RN db Corrections: (The following items were deleted from the chart) 07:42 07:33 ED course: Discussed end of life care with patient's and she wants patient ms3 to be DNR. . ms3 13:32 11:01 ms3 eb
--- NOTE | 2022-05-12 11:02 | ER ---
Nurse's Notes [facility] Name: Kyrie Quispe Age: 61 yrs Sex: Male : 1960 Arrival Date: 05/12/2022 Time: 06:15 Bed 15 Private MD: Diagnosis: Metastatic cancer;Pneumonia;Low back pain Presentation: 05/12 06:28 Chief complaint: EMS states: called because is not acting right since last ke1 when she believed he had an episode of seizure, appears more confused than usual and displays tremors of hands. Ebola Screen: No symptoms or risks identified at this time. Initial Sepsis Screen: Does the patient meet any 2 criteria? No. Patient's initial sepsis screen is negative. Does the patient have a suspected source of infection? No. Patient's initial sepsis screen is negative. Risk Assessment: Do you want to hurt yourself or someone else? Patient reports no desire to harm self or others. Onset of symptoms was May 09, 2022 at 03:00. 06:28 Method Of Arrival: EMS: [facility] ke1 06:28 Acuity: RONNIE 3 ke1 15:08 Coronavirus screen: Vaccine status: Patient reports receiving the 2nd dose of the covid db vaccine. Client denies travel out of the [place] in the last 14 days. Triage Assessment: 06:31 General: Appears cachectic, Behavior is cooperative. Pain: Complains of pain in back. ke1 Neuro: Level of Consciousness is awake, alert, confused, Oriented to person, place, situation. Respiratory: Airway is patent Respiratory effort is even, unlabored, Respiratory pattern is regular, symmetrical. Historical: - Allergies: 06:31 No Known Allergies; ke1 - PMHx: 06:31 Heart Murmur; hemochromatosis; PROSTATE CA; Seizures; ke1 - Immunization history:: Adult Immunizations unknown. - Social history:: Smoking status: Patient reports the use of cigarette tobacco products, smokes one-half pack cigarettes per day, Smoking status: unknown. Screenin:34 Abuse screen: Denies threats or abuse. Nutritional screening:. Tuberculosis screening: ke1 No symptoms or risk factors identified. Fall Risk Fall in past 12 months (25 points). Secondary diagnosis (15 points) Cancer very weak. No IV (0 pts). Ambulatory Aid- None/Bed Rest/Nurse Assist (0 pts). Gait- Weak (10 pts.). Mental Status- Overestimates/Forgets Limitations (15 pts.). Total [place] Fall Scale indicates High Risk Score (45 or more points). Fall prevention measures have been instituted. Side Rails Up X 2 Placed Close to Nursing Station Frequent Obs/Assessments Occuring. Assessment: 07:52 Reassessment: Patient appears in no apparent distress at this time. Patient and/or db family updated on plan of care and expected duration. Pain level reassessed. patient here for seizure. hx of cancer. General: Appears in no apparent distress. uncomfortable. Pain: Complains of pain in back. Neuro: Level of Consciousness is awake, alert, obeys commands, confused, Oriented to person, place, situation, Appropriate for age Speech is normal. 08:30 Reassessment: Patient appears in no apparent distress at this time. Patient and/or db family updated on plan of care and expected duration. Pain level reassessed. Patient is alert, oriented x 3, equal unlabored respirations, skin warm/dry/pink. Patient states feeling better. Patient states symptoms have improved. General: Appears in no apparent distress. Behavior is calm, cooperative, appropriate for age. 09:30 Reassessment: Patient appears in no apparent distress at this time. No changes from db previously documented assessment. Patient and/or family updated on plan of care and expected duration. Pain level reassessed. Patient is alert, oriented x 3, equal unlabored respirations, skin warm/dry/pink. 10:31 Reassessment: Patient appears in no apparent distress at this time. Patient is alert, db oriented x 3, equal unlabored respirations, skin warm/dry/pink. comp field case manager is at patient bedside Patient states symptoms have improved. 12:00 Reassessment: Patient appears in no apparent distress at this time. No changes from db previously documented assessment. Patient and/or family updated on plan of care and expected duration. Pain level reassessed. Patient is alert, oriented x 3, equal unlabored respirations, skin warm/dry/pink. 14:34 Reassessment: Patient appears in no apparent distress at this time. No changes from db previously documented assessment. Patient and/or family updated on plan of care and expected duration. Pain level reassessed. See [facility] for continued charting. Vital Signs: 06:28 BP 105 / 78; Pulse 126; Resp 19; Temp 100.4; Pulse Ox 95% on R/A; Weight 61.69 kg; ke1 Height 6 ft. 03 in. (190.50 cm); 08:20 BP 113 / 70; Pulse 116; Resp 20; Temp 99.9(O); Pulse Ox 100% on R/A; Pain 7/10; db 09:00 BP 105 / 77; Pulse 113; Resp 18; Pulse Ox 100% ; db 10:05 Pulse 112 MON; Resp 20; Temp 98.9(O); Pulse Ox 100% on R/A; db 11:30 BP 98 / 72; Pulse 106; Resp 14; Pulse Ox 97% ; db 12:30 BP 99 / 68; Pulse 105; Resp 12; Temp 97.9(O); Pulse Ox 98% on R/A; db 06:28 Body Mass Index 17.00 (61.69 kg, 190.50 cm) ke1 Chandler Coma Score: 06:31 Eye Response: spontaneous(4). Verbal Response: confused(4). Motor Response: obeys ke1 commands(6). Total: 14. 07:52 Eye Response: spontaneous(4). Verbal Response: confused(4). Motor Response: obeys db commands(6). Total: 14. ED Course: 06:15 Patient arrived in ED. wm 06:24 Roney Thomas MD is Attending Physician. kdr 06:26 Patient has correct armband on for positive identification. Placed in gown. Bed in low mm9 position. Call light in reach. Side rails up X2. Seizure precautions initiated. Warm blanket given. surveillance system monitor on. Pulse ox on. NIBP on. 06:28 Jose Rowe, RN is Primary Nurse. ke1 06:31 Triage completed. ke1 06:53 XRAY Chest (1 view) In Process Unspecified. EDMS 06:54 Missed attempt(s): 20 gauge in right antecubital area. 22 gauge in right forearm. mm9 06:55 Basic Metabolic Panel Sent. mm9 06:55 CBC with Diff Sent. mm9 06:55 NT PRO-BNP Sent. mm9 06:55 Troponin HS Sent. mm9 06:55 Initial lab(s) drawn, by ED staff, sent to lab. EKG done, by ED staff, reviewed by mm9 Brandan Holley DO. 06:58 Inserted saline lock: 20 gauge in left antecubital area, using aseptic technique. ke1 07:00 Arm band placed on right wrist. Patient placed in an exam room. db 07:11 Attending Physician role handed off by Roney Thomas MD ms3 07:11 Brandan Holley DO is Attending Physician. ms3 07:23 CT Head Brain wo Cont In Process Unspecified. EDMS 08:10 First set of blood cultures drawn. db 08:23 Second set of blood cultures drawn. db 11:01 Jason Aragon is Hospitalizing Provider. ms3 14:50 Report given to TAYLOR Hamilton. db 15:08 No provider procedures requiring assistance completed. Inserted Patient admitted, IV db remains in place. Administered Medications: 06:59 Drug: NS 0.9% 1000 ml Route: IV; Rate: 1 bolus; Site: left antecubital; ke1 10:04 Follow up: Response: No adverse reaction; IV Status: Completed infusion; IV Intake: db 1000ml 08:12 Drug: Ketorolac 10 mg Route: IVP; Site: left antecubital; db 09:54 Follow up: Response: No adverse reaction db 08:35 Drug: Rocephin (cefTRIAXone) 1 grams Route: IV; Rate: calculated rate; Site: left db antecubital; 08:54 Follow up: Response: No adverse reaction; IV Status: Completed infusion; IV Intake: 50mldb 08:35 Drug: fentaNYL Patch 100 mcg/hr 1 patches Route: Transdermal; Site: affected area; db 09:55 Follow up: Response: No adverse reaction db 08:46 Drug: AZITHromycin 500 mg Route: IVPB; Infused Over: 1 hrs; Site: left antecubital; db 09:55 Follow up: Response: No adverse reaction; IV Status: Completed infusion; IV Intake: db 250ml 10:04 Drug: Tylenol 1000 mg Route: PO; db 10:32 Follow up: Response: No adverse reaction db Medication: 09:30 VIS not applicable for this client. db Intake: 08:54 IV: 50ml; Total: 50ml. db 09:55 IV: 250ml; Total: 300ml. db 10:04 IV: 1000ml; Total: 1300ml. db Outcome: 11:01 Decision to Hospitalize by Provider. ms3 15:07 Admitted to Tele accompanied by tech. db 15:07 Condition: stable 15:07 Instructed on the need for admit. 15:10 Patient left the ED. eb Signatures: Dispatcher [employer] EDRoney Beard MD MD kdr Botello, Elizabeth eb Sims, Marcus, DO DO ms3 Stefania Estevez Kouassi, RN RN ke Emily Richard RN RN db Martinez, Maria mm9 Corrections: (The following items were deleted from the chart) 07:54 07:52 Neuro: Level of Consciousness is awake, alert, obeys commands, Oriented to db person, place, situation, Appropriate for age Speech is normal, db 08:57 08:23 First set of blood cultures drawn Second set of blood cultures drawn by ct, rogelio db
[2022-05-12 13:15] LABS: SARS-CoV-2 Antigen Rapid Res Negative (Negative)
[2022-05-12] MEDS: levETIRAcetam 500 MG in NA CHLORIDE 0.9% 100 ML IV SCH (13:30)
[2022-05-12] MEDS ORDERED: ACETAMINOPHEN 500 MG TAB PO PRN (15:20)
[2022-05-12] MEDS ORDERED: ONDANSETRON 4 MG/2 ML VIAL IV PRN (15:20)
--- NOTE | 2022-05-12 15:42 | P.HP ---
Certification for Inpatient Patient admitted to: Inpatient With expected LOS: >2 Midnights Practitioner: I am a practitioner with admitting privileges, knowledge of patient current condition, hospital course, and medical plan of care. Services: Services provided to patient in accordance with Admission requirements found in Title 42 Section 412.3 of the Code of Federal Regulations Patient History Date of Service: 05/12/22 Reason for admission: Seizures History of Present Illness: 61-year-old gentleman with a history of prostate cancer, recently diagnosed lung cancer with progression, brain metastasis status post chemo, most recent MRI showing resolution of the brain metastasis presented to the emergency department due to suspected seizures. According to the patient have had multiple seizures in the past, related to history of multiple CVAs. Patient woke up this morning very weak, unable to walk, with worse clumsiness in bilateral hands along with slow speech. suspected he had a seizure and brought him to the emergency department for evaluation. Head CT shows no acute changes. Chest x- ray demonstrated left lower lobe opacity. Most recent CTA throughout negative for PE but demonstrated left lower lobe mass, and mediastinal mass which is growing. At this point they want to pursue hospice. Patient noted to be oriented x3 during my examination. He is admitted for further management. Allergies No Known Allergies Allergy (Verified 12/27/21 08:07) Home Medications: Pantoprazole Sodium [Protonix] 40 mg PO Q4HR 04/24/20 Aspirin 1 tab PO DAILY 12/27/21 Atenolol [Tenormin] 1 tab PO DAILY 12/27/21 Atorvastatin Calcium [Lipitor*] 1 tab PO BEDTIME 12/27/21 Cyanocobalamin (Vitamin B-12) [Vitamin B-12] 1 tab PO DAILY 12/27/21 Duloxetine HCl 1 tab PO DAILY 12/27/21 Lacosamide 2 tab PO BID 12/27/21 Levothyroxine [Synthroid*] 1 tab PO DAILY 12/27/21 Fentanyl Patch [Duragesic Patch*] 1.5 05/12/22 Morphine Sulfate [Morphine Sulfate ER] 4 PO Q4HR PRN 05/12/22 Naproxen Sodium 1 PO BID 05/12/22 - Past Medical/Surgical History -: Prostate cancer -: Lung malignancy -: Seizure disorder -: History of CVA -: Hypertension -: Hyperlipidemia -: Gastritis -: Right knee surgery -: Radical prostatectomy - Family History Family History: Reviewed- Non-Contributory - Social History Smoking Status: Current every day smoker Alcohol use: No CD- Drugs: No Place of Residence: Home Review of Systems Other: No reported fever or cough or nausea or vomiting or diarrhea. endorsed chronic anorexia. Patient has chronic back pain related to the lung malignancy. Except as documented, all other systems reviewed and negative. Physical Examination - Vital Signs Temperature: 97.9 F Blood Pressure: 95/66 Pulse: 102 Respirations: 12 Pulse Ox (%): 97 - Physical Exam General: In no apparent distress, Oriented x3, Other (Awake) HEENT: Atraumatic, PERRLA, Mucous membr. moist/pink, EOMI, Sclerae nonicteric Neck: Supple, JVD not distended Respiratory: Clear to auscultation bilaterally, Normal air movement Cardiovascular: No edema, Regular rate/rhythm, Normal S1 S2, No murmurs Capillary refill: <2 Seconds Gastrointestinal: Normal bowel sounds, Soft and benign, Non-distended, No tenderness Musculoskeletal: No swelling, No tenderness Integumentary: No rashes, No cyanosis Neurological: Normal speech, Cranial nerves 3-12 intact, Other (Globally weak, no focal deficit) Lymphatics: No axilla or inguinal lymphadenopathy - Studies Laboratory Data (last 24 hrs) 05/12/22 08:23: Total Bilirubin 0.7, AST 119 H, ALT < 10 L, Alkaline Phosphatase 107 05/12/22 08:23: PT 16.3 H, INR 1.48, APTT 31.9 05/12/22 06:55: WBC 10.80, Hgb 10.5 L, Hct 30.7 L, Plt Count 163 05/12/22 06:55: Sodium 131 L, Potassium 4.2, BUN 14, Creatinine 0.65, Glucose 92 Assessment and Plan - Problems (Diagnosis) (1) Seizure disorder Current Visit: Yes Status: Acute (2) Prostate cancer Current Visit: Yes Status: Acute (3) Lung malignancy Current Visit: Yes Status: Acute (4) GERD (gastroesophageal reflux disease) Current Visit: Yes Status: Acute - Plan Admitted to the medical floor. Patient and family would like to pursue hospice. 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 Patient need to be hospital for further treatment of seizures and also arrange for hospice. Continue home dose lacosamide. Add Keppra IV. Ativan IV as needed for breakthrough seizures Continue home pain regimen-Fentanyl patch and morphine IR. Patient passed bedside swallow evaluation. I doubt patient has pneumonia. Low leukocytosis, no fever. Check procalcitonin. Diet as tolerated PPI for GERD. Social service consult for hospice evaluation. - Advance Directives Does patient have a Living Will: No Does patient have a Durable POA for Healthcare: No
[2022-05-12] MEDS ORDERED: MORPHINE 15 MG IR TAB PO PRN (15:49)
[2022-05-12] MEDS ORDERED: LORazepam 2 MG/ML VIAL IV PRN (15:51)
[2022-05-12] MEDS ORDERED: INFLUENZA VACCINE (for 6+ mo) 0.5 ML DOSE IMVAC ONE (16:00)
[2022-05-12] MEDS: HEPARIN 5000 UNIT/ML 1 ML VIAL SQ SCH (16:23)
[2022-05-12] MEDS: NA CHLORIDE 0.9% 1,000 ML IV SCH (16:23)
[2022-05-12] MEDS: LACOSAMIDE 150 MG PO SCH (21:00)
[2022-05-12] MEDS: PANTOPRAZOLE 40MG TABLET PO SCH (21:13)
[2022-05-13] MEDS: NA CHLORIDE 0.9% 1,000 ML IV SCH ×2 (01:20→11:20)
[2022-05-13] MEDS: levETIRAcetam 500 MG in NA CHLORIDE 0.9% 100 ML IV SCH ×2 (01:21→13:30)
[2022-05-13] MEDS: HEPARIN 5000 UNIT/ML 1 ML VIAL SQ SCH ×2 (01:21→08:12)
[2022-05-13 05:56] LABS: Absolute Lymphocytes (CBC) 0.5 K/uL (0.7-4.9); Hematocrit 26.4 % (39.6-49.0); Lymphocytes % 6.9 % (15.3-44.8); MPV 8.7 fL (7.6-11.3); RBC Red Blood Cell Count 2.49 M/uL (4.33-5.43)
[2022-05-13 06:11] LABS: Potassium 3.9 mmol/L (3.5-5.1)
[2022-05-13] MEDS: LACOSAMIDE 150 MG PO SCH (08:12)
[2022-05-13] MEDS: PANTOPRAZOLE 40MG TABLET PO SCH (08:12)
[2022-05-13] MEDS ORDERED: CYANOCOBALAMIN 2500 MCG PO SCH (09:00)
[2022-05-13] MEDS ORDERED: DULOXETINE 20 MG CAP PO SCH (09:00)
[2022-05-13] MEDS ORDERED: ASPIRIN 81 MG CHEWABLE TABLET PO SCH (09:00)
[2022-05-13] MEDS ORDERED: LEVOTHYROXINE SOD 0.1 MG TAB PO SCH (09:00)
[2022-05-13] MEDS ORDERED: POTASSIUM CL SA 10 MEQ TAB PO ONE (09:00)
[2022-05-13] MEDS: ENSURE HIGH PROTEIN 237 ML CAN PO SCH ×2 (09:16→11:08)
[2022-05-13 09:21] VITALS: O2SAT 97
--- NOTE | 2022-05-13 12:14 | EKG ---
Test Date: 2022-05-12 Test Time: 06:48:53 Service Counselor: KENNA MEASUREMENT RESULTS: Intervals: Rate: 122 [place]: 164 QRSD: 78 QT: 304 QTc: 433 [place]: P: 74 [place]: 164 QRS: 36 T: 28 INTERPRETIVE STATEMENTS: Sinus tachycardia Septal infarct, age undetermined Abnormal ECG Compared to ECG 10/15/2005 14:22:47 Myocardial infarct finding now present Sinus rhythm no longer present Electronically Signed On 05-13-22 12:11:54 CERTIFIED NEURODIAGNOSTIC TECHNOLOGIST by Arjun Hernandez
[2022-05-13 13:15] VITALS: BP 110/72; TEMP 97.1
[2022-05-13] MEDS ORDERED: MORPHINE 15 MG IR TAB PO PRN (14:10)
--- NOTE | 2022-05-13 14:26 | P.DS ---
Admission Date: 05/12/22 Discharge Date: 05/13/22 Disposition: HOSPICE-HOME Discharge Condition: FAIR Reason for Admission: Seizures - Problems (1) Seizure disorder Current Visit: Yes Status: Acute (2) Prostate cancer Current Visit: Yes Status: Acute (3) Lung malignancy Current Visit: Yes Status: Acute (4) GERD (gastroesophageal reflux disease) Current Visit: Yes Status: Acute Brief History of Present Illness: 61-year-old gentleman with a history of prostate cancer, recently diagnosed lung cancer with progression, brain metastasis status post chemo, most recent MRI showing resolution of the brain metastasis presented to the emergency department due to suspected seizures. According to the patient have had multiple seizures in the past, related to history of multiple CVAs. Patient woke up this morning very weak, unable to walk, with worse clumsiness in bilateral hands along with slow speech. suspected he had a seizure and brought him to the emergency department for evaluation. Head CT shows no acute changes. Chest x- ray demonstrated left lower lobe opacity. Most recent CTA throughout negative for PE but demonstrated left lower lobe mass, and mediastinal mass which is growing. At this point they want to pursue hospice. Patient noted to be oriented x3 during my examination. He is admitted for further management. Hospital Course: Patient admitted to the medical floor, hydrated with IV fluid, resume his home medications including lacosamide for seizures and IV Keppra. No seizures during the hospital stay. Patient tolerated liquid diet. Case discussed with Dr. Jacques who recommended adding Keppra to lacosamide for breakthrough seizures. Patient has been accepted for hospice and he is discharged to home to begin hospice. Vital Signs/Physical Exam: Temp Pulse Resp BP Pulse Ox 97.1 F 105 H 16 110/72 95 05/13/22 12:00 05/13/22 12:00 05/13/22 12:00 05/13/22 12:00 05/13/22 12:00 General: Alert, In no apparent distress HEENT: Mucous membr. moist/pink Neck: JVD not distended Respiratory: Diminished (Bilateral) Cardiovascular: No edema, Regular rate/rhythm, Normal S1 S2 Gastrointestinal: Soft and benign, Non-distended Musculoskeletal: No swelling Neurological: Normal strength at 5/5 x4 extr Laboratory Data at Discharge: WBC 7.30 K/uL (4.3-10.9) 05/13/22 05:22 Hgb 9.2 g/dL (13.6-17.9) L D 05/13/22 05:22 Hct 26.4 % (39.6-49.0) L 05/13/22 05:22 Plt Count 136 K/uL (152-406) L 05/13/22 05:22 PT 16.3 SECONDS (9.5-12.5) H 05/12/22 08:23 INR 1.48 05/12/22 08:23 APTT 31.9 SECONDS (24.3-36.9) 05/12/22 08:23 Sodium 133 mmol/L (136-145) L 05/13/22 05:22 Potassium 3.9 mmol/L (3.5-5.1) 05/13/22 05:22 BUN 14 mg/dL (7-18) 05/13/22 05:22 Creatinine 0.46 mg/dL (0.55-1.3) L 05/13/22 05:22 Glucose 78 mg/dL (74-106) 05/13/22 05:22 Total Bilirubin 0.7 mg/dL (0.2-1.0) 05/12/22 08:23 AST 119 U/L (15-37) H 05/12/22 08:23 ALT < 10 U/L (12-78) L 05/12/22 08:23 Alkaline Phosphatase 107 U/L (45-117) 05/12/22 08:23 Home Medications: Pantoprazole Sodium [Protonix] 40 mg PO Q4HR 04/24/20 Aspirin 1 tab PO DAILY 12/27/21 Atorvastatin Calcium [Lipitor*] 1 tab PO BEDTIME 12/27/21 Cyanocobalamin (Vitamin B-12) [Vitamin B-12] 1 tab PO DAILY 12/27/21 Duloxetine HCl 1 tab PO DAILY 12/27/21 Lacosamide 2 tab PO BID 12/27/21 Levothyroxine [Synthroid*] 1 tab PO DAILY 12/27/21 Fentanyl Patch [Duragesic Patch*] 75 mcg TOP EVERY 3RD DAY 05/12/22 Naproxen Sodium 275 mg PO BID 05/12/22 Olanzapine [Zyprexa] 5 mg PO DAILY 05/12/22 Potassium Chloride 20 meq PO BID 05/12/22 Sennosides [Senna] 8.6 mg PO DAILY 05/12/22 Ensure High Protein 237 ml PO TIDWM #90 can 05/13/22 Morphine Ir [MSIR (Morphine Sulfate IR)*] 60 mg PO Q6H PRN tab 05/13/22 New Medications: Ensure High Protein 237 ml PO TIDWM #90 can Diet: Regular (Liquid diet) Activity: Fall precautions Followup: Unknown,U [Primary Care Provider] - Time spent managing pt's care (in minutes): 34
[2022-05-13 15:06] VITALS: BMI 25.7
[2022-05-13] MEDS ORDERED: NAPROXEN SODIUM PO SCH (21:00)
== END 2022-05-13 15:12 | disposition hospice, home (50) | DRG 101 ==
LOC: ER 06:10 → ERHOLD 12:28 → 4TH 14:50
PROVIDERS: ADMIT Internal Medicine; ATTEND Internal Medicine
DX: G40.909 Epilepsy, unspecified, not intractable, without status epilepticus (principal); C34.32 Malignant neoplasm of lower lobe, left bronchus or lung; C79.31 Secondary malignant neoplasm of brain; K21.9 Gastro-esophageal reflux disease without esophagitis; I10 Essential (primary) hypertension; E78.5 Hyperlipidemia, unspecified; G89.3 Neoplasm related pain (acute) (chronic); M54.50 Low back pain, unspecified; E83.119 Hemochromatosis, unspecified; F17.210 Nicotine dependence, cigarettes, uncomplicated; Z79.899 Other long term (current) drug therapy; Z86.73 Personal history of transient ischemic attack (TIA), and cerebral infarction without residual deficits; Z85.46 Personal history of malignant neoplasm of prostate; Z90.79 Acquired absence of other genital organ(s); Z20.822 Contact with and (suspected) exposure to COVID-19
CPT/HCPCS: 36415; 70450; 71045; 80048; 80076; 83605; 83880; 84145; 84484; 85025; 85610; 85730; 87040; 87811; 93005; 96361; 96365; 96375; 99285; J0456; J1644; J1953; J7030; J7050